=== PATIENT | male | born 1980 | race African-American/Black ===

== ENCOUNTER → 2024-05-03 | Outpatient (CLI) | payer OTHER, SELFPAY ==
[2024-05-03 14:49] LABS: Glucose Estimated Average 120 mg/dL (80-131); Hemoglobin A1C 5.8 % Hgb (4.8-6.0)
== END | disposition home or self-care (01) ==
PROVIDERS: PCP Student in an Organized Health Care Education/Training Program; Referring Provider Student in an Organized Health Care Education/Training Program; Visit Provider Student in an Organized Health Care Education/Training Program
DX: E11.65 Type 2 diabetes mellitus with hyperglycemia (principal); Z79.4 Long term (current) use of insulin
CPT/HCPCS: 36415; 83036

== ENCOUNTER → 2024-05-06 | Outpatient (CLI) | payer OTHER, SELFPAY ==
[2024-05-06 12:01] LABS: Basophils % (Auto) 1 % (0-2.5); Eosinophils # (Auto) 0.2 Thou/mm3 (0.0-0.5); Eosinophils % (Auto) 2 % (0-10); Hematocrit 28.3 % (41.0-53.0); Immature Granulocytes % (Auto) 0 % (0-0); Immature Granulocytes Auto 0.02 Thou/mm3 (0.00-0.00); Lymphocytes % (Auto) 27 % (10-50); Mean Corpuscular HGB Conc 31.8 g/dl (31.0-37.0); Mean Corpuscular Hemoglobin 27.2 pg (25.0-35.0); Mean Corpuscular Volume 86 fL (80-100); Monocytes # (Auto) 0.6 Thou/mm3 (0.0-0.8); Monocytes % (Auto) 8 % (0-12); Neutrophils # (Auto) 4.7 Thou/mm3 (1.8-7.7); Neutrophils % (Auto) 63 % (37-80); Nucleated Red Blood Cell % 0 /100 WBC (0); Platelet Count 279 Thou/mm3 (140-440); Red Blood Count 3.31 Miln/mm3 (4.50-5.90); White Blood Count 7.5 Thou/mm3 (3.8-10.6)
[2024-05-06 12:26] LABS: Alanine Aminotransferase 30 U/L (10-49); Albumin, Serum 4.2 gm/dL (3.5-5.0); Albumin/Globulin Ratio 1.4 (1.2-2.2); Alkaline Phosphatase 77 U/L (46-116); Anion Gap 7 (7-16); Aspartate Amino Transferase 26 U/L (0-34); BUN/Creatinine Ratio 21 Ratio (12-20); Bilirubin,Total 0.3 mg/dL (0.3-1.2); Blood Urea Nitrogen 36 mg/dL (9-23); Calcium 9.2 mg/dL (8.3-10.6); Calcium (Corrected) 9.2 mg/dL (8.5-10.1); Carbon Dioxide 24.2 mMol/L (20.0-31.0); Cardiac Risk Estimate 4.4 RATIO (4.0-6.7); Chloride 110 mMol/L (98-107); Cholesterol 177 mg/dL (132-200); Creatinine (Component) 1.7 mg/dL (0.6-1.3); Globulin 2.9 gm/dL (2.3-3.5); Glucose 107 mg/dL (74-106); HDL Cholesterol 40 mg/dL (40-60); LDL Cholesterol,Calculated 119 mg/dL (0-130); Osmolality,Calculated 289 (275-295); Potassium 4.3 mMol/L (3.4-5.1); Sodium 141 mMol/L (136-145); Total Protein 7.1 gm/dL (5.7-8.2); Triglycerides 92 mg/dL (30-150); eGFR 50 See Note
[2024-05-06 14:23] LABS: Creatinine MALB Rnd Ur 178 mg/dL (30-125); Microalbumin Creat Ratio 418 mg/gCrea (<30); Microalbumin, Random Urine 744 mg/L (0-300)
== END | disposition home or self-care (01) ==
LOC: COPL 11:35
PROVIDERS: PCP Student in an Organized Health Care Education/Training Program; Referring Provider Student in an Organized Health Care Education/Training Program; Visit Provider Student in an Organized Health Care Education/Training Program
DX: E11.22 Type 2 diabetes mellitus with diabetic chronic kidney disease (principal); N18.9 Chronic kidney disease, unspecified; D63.1 Anemia in chronic kidney disease; E11.65 Type 2 diabetes mellitus with hyperglycemia; Z79.4 Long term (current) use of insulin; N17.9 Acute kidney failure, unspecified; E78.2 Mixed hyperlipidemia; D64.9 Anemia, unspecified
CPT/HCPCS: 36415; 80053; 80061; 82043; 82570; 85025

== ENCOUNTER 2024-05-10 09:45 | Outpatient (AMB) | payer OTHER, SELFPAY ==
[2024-05-10 09:49] VITALS: BP 112/73; PULSE 114; RESP 18; TEMP 36.8; O2SAT 98; BMI 25.1
--- NOTE | 2024-05-10 09:49 | ACNOTE_ITS ---
Vital Signs 05/10/24 09:49 Height 1.78 m Height Method Stated Weight 79.492 kg Weight Measurement Method Standing Scale BMI 25.1 BP 112/73 Blood Pressure Source Automatic Cuff Blood Pressure Location Left Upper Arm Position Sitting Respiration 18 Pulse 114 H Pulse Source Monitor Temp 98.2 F Temp Source Oral Pulse Oximetry (%) 98 Oxygen Delivery Method Room Air Allergies/Meds Allergies & Medications Allergies No Known Allergies Allergy (Verified 05/19/24 20:02) Medication Reconciliation cholecalciferol (vitamin D3) 25 mcg (1,000 unit) tablet 2,000 unit PO QDAY 90 days #90 tabs 10/20/23 [Rx Confirmed 05/23/24] ferrous sulfate 325 mg (65 mg iron) tablet,delayed release 325 mg PO QOD #90 tabs 10/20/23 [Rx Confirmed 05/23/24] FreeStyle Ryan 3 Sensor (blood-glucose sensor) #2 ea 05/06/24 [Rx Confirmed 05/23/24] tirzepatide 2.5 mg/0.5 mL subcutaneous pen injector (Mounjaro) 2.5 mg (0.5 mL) subcut QWEEK diabetes mellitus #2 mL 05/06/24 [Rx Confirmed 05/23/24] MA Intake Visit Data Collection New Patient or Established: Established Patient (seen at [facility] within 3 years) Seen by Clinical Staff ONLY (RN/MA): No Pain Present Currently: No Pain scale:: 0 Pain Scale Used: Miranda-Newman/Numerical Relocation Coordinator Required: No PCP or OBGYN visit in last 3 months: Yes Do You Feel Safe at Home: Yes Smoking Status Smoking Status: Never smoker Immunization / Flu Flu Vaccine in the Last 12 Months: No Flu Vaccine Exclusion Criteria: Refused by Patient Past Medical History Past Medical History NEUROLOGIC: Positive Neurological Disorders and Peripheral Neuropathy; Negative Seizures CARDIAC: Positive Cardiac Disorders, Hypercholesterolemia and Hypertension; Negative Congestive Heart Failure RESPIRATORY: Negative Chronic Obstructive Pulmonary Disease (COPD) or Asthma GASTROINTESTINAL: Positive Gastrointestinal Disorders and Colitis GENITOURINARY: Negative Genitourinary Disorders or Renal Disease MUSCULOSKELETAL: Negative Musculoskeletal Disorders ENDOCRINE: Positive Endocrine Disorders and Diabetes Mellitus Type 2; Negative Diabetes Mellitus Type 1 HEMATOLOGIC: Negative Blood Disorders or Sickle Cell Disease PSYCHO/SOCIAL: Positive Depression and Anxiety OTHER HISTORY: Positive Chicken Pox; Negative Blood Transfusions, Anesthesia Reactions or Cancer Surgical History SURGICAL: Positive Oral Surgery (implants) Social History SMOKING STATUS: Smoking status: Never smoker ALCOHOL: Alcohol Intake: Current ALCOHOL FREQUENCY: Alcohol Intake Frequency: holidays/special occasions only HOUSING: Housing: House LIVES WITH: Lives With: Family Travel Risk Travel Hx Recent Travel: No Patient Portal Questionaires Social History Living Situation History Housing: House Housing Other:: Pt lives with his cousins Tobacco History Smoking Status: Never smoker Alcohol History Alcohol Intake: Current Alcohol Intake Frequency: holidays/special occasions only Domestic Abuse History Do You Feel Safe at Home: Yes Review of Systems Report any current symptoms Only answer those that you have currently: Past Medical History Past Medical History Have you ever been diagnosed with any of the following: Neurological Problems Seizures: No Peripheral Neuropathy: Yes Cardiology Problems Hypercholesterolemia: Yes Congestive Heart Failure: No Hypertension: Yes Respiratory Problems Chronic Obstructive Pulmonary Disease (COPD): No Asthma: No Stomache/Intestinal Problems Colitis: Yes Genital/Urinary Problems Renal Disease: No Endocrine Problems Diabetes Mellitus Type 1: No Diabetes Mellitus Type 2: Yes Blood Problems Sickle Cell Disease: No Psychologic Problems Depression: Yes Anxiety: Yes Other Problems Blood Transfusions: No Anesthesia Reactions: No Chicken Pox: Yes Cancer: No History of Present Illness HPI Narrative Patient presents to [facility] for follow-up of recent labs. On initial intake, patient noted to be tachycardic in the 110s with all other vitals within normal limits. Patient denies any symptoms of shortness of breath, palpitations, syncopal episodes. Patient was referred to cardiology services for evaluation of tachycardia and POTS, however has been unable to schedule an appointment. He states that he will schedule an appointment as soon as possible for further evaluation. Patient provided with a new referral. Will also initiate carvedilol 3.125 mg twice a day. On review of his labs, patient was noted to have a RAULITO with a BUN/CR of 36 and 1.7 respectively. Patient denied any recent use of NSAIDs or diuretics. He he did note that he has been having decreased oral intake of water as of recently which may be attributed to his RAULITO. Advised patient to increase his water intake. Will repeat BMP and urinalysis and follow-up in 2 weeks. Labs also indicated a elevated urine microalbumin (744), urine creatinine (178) and microalbumin to creatinine ratio (418). Due to ongoing RAULITO will not initiate GABBI/ARB at this time. Will consider at next visit. Lipid panel showed LDL of 119. Given the patient's concurrent diabetes mellitus, goal LDL less than 70. Patient has not been on statin in more than 2 months. Will reinitiate atorvastatin 40 mg p.o. nightly. Review of Systems Review of Systems Systems Reviewed: All systems reviewed, normal except as documented Objective/Exam General General Appearance: alert, in no apparent distress, comfortable, cooperative, healthy appearing, well developed and well groomed Head Head exam: atraumatic and normocephalic Eye Eye exam: Present normal appearance and EOMI Neck Neck exam: Present full ROM Chest Chest inspection: Present symmetric chest wall rise Resp Respiratory exam: Present normal lung sounds bilaterally Card Cardiovascular exam: Present regular rate, normal rhythm and tachycardia Abdominal Abdominal exam: Present soft Exp Skin Type of lesion: Present rash Distribution: other (Left lower extremity, popliteal fossa, appears dry and scaling) Assessment & Plan Diagnosis / Problem List (1) Acute kidney injury superimposed on CKD: Status: Acute Assessment & Plan: Patient noted to have elevated Cr on labs recently performed with a BUN/CR of 36 and 1.7 respectively. Denies any recent NSAID or diuretic usage. Patient notes he has had reduced PO fluid intake. Plan: Advised patient to increase water intake. Will repeat BMP and U/A and followup in 2 weeks time. (2) POTS (postural orthostatic tachycardia syndrome): Status: Acute Assessment & Plan: On initial intake, patient noted to be tachycardic in the 110s with all other vitals within normal limits. Plan: Cardiology referral provided. (3) Tachycardia with heart rate 100-120 beats per minute: Status: Chronic Assessment & Plan: Patient denied new episodes of palpitations or tachycardia, pending marble polisher hand appointment for follow-up and further recommendations. Plan: Discontinue metoprolol with the patient did not tolerate even the low-dose. Start Carvedilol 3.125 mg qday for three days. Then increase to BID. 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 CGM glucose trends between 180 and lowest around 67 when average glucose of 120. Plan: Continue Mounjaro 2.5 mg weekly. Patient was encouraged to continue healthy lifestyle modifications as well as exercise daily as tolerated. (5) Rash, skin: Status: Acute Assessment & Plan: Patient stated that around 1 month ago started presenting left lower extremity skin rash around the popliteal area mildly itchy. Patient notes improvement of rash and decreased pruritus after initiating Triamcinolone topical cream. Plan: Continue Triamcinolone 0.1% topical cream twice daily for 1 month Plan Patient's case was discussed with supervising attending physician Dr. Maikel Ramsey M.D. Internal Medicine PGY-3 Orders: Orders Basic Metabolic Panel 05/10/24 N17.9 - Acute kidney failure, unspecified, N18.9 - Chronic kidney disease, unspecified Urinalysis 05/10/24 N17.9 - Acute kidney failure, unspecified, N18.9 - Chronic kidney disease, unspecified Referrals Cardiology R00.0 - Tachycardia, unspecified, G90.A - Postural orthostatic tachycardia syndrome [POTS] Additional Assessment Attending note: I, Jeramy Ko MD, attest that I was physically present for the buchanan portions of the service and evaluated the patient with the resident and I reviewed and discussed the case with the resident and agree with the resident's findings and plans of care as documented above. Follow-up visit. Labs reviewed. Creatinine elevated again at 1.7. May be due to decreased intake of water. Does also have elevated urine microalbumin of 744, urine creatinine of 178, microalbumin to creatinine ratio 418. With ongoing RAULITO, we will hold off on GABBI/ARB at this time but consider at next visit. Repeat renal panel. We will reinstitute atorvastatin today for LDL of 119 which is above goal given that patient is diabetic. Note also made of patient remained tachycardic. Previously did not tolerate low-dose metoprolol. We will try low-dose carvedilol 3.125 mg twice daily. Patient has been referred to cardiology for follow-up of tachycardia. Jeramy Ko MD Physician Billing Established Patient Established Patient: E/M Level 3-CPT 15652 Office Procedures [facility] Level of Care Nursing/Assessment Patient Status: Established Patient Nursing Assessment/Reassessment: Medication Reconciliation, Update PMH in EMR and Vital Signs Coordination of Care: Complex Care and Chronic Disease 1-5, Consent,records obtained, informed consent, Education Simp Pt/Fam, Results/Orders obtained and Staff clarify orders Established Patient Charge Established Patient Point Assignment: 90 Established Patient Point Charge: EP Level 3 (80-115)
== END 2024-05-10 10:39 | disposition home or self-care (01) ==
LOC: HODAHC 09:45
PROVIDERS: PCP Student in an Organized Health Care Education/Training Program; Referring Provider Student in an Organized Health Care Education/Training Program; Supervising Provider Internal Medicine; Visit Provider Student in an Organized Health Care Education/Training Program
DX: N17.9 Acute kidney failure, unspecified (principal); E11.22 Type 2 diabetes mellitus with diabetic chronic kidney disease; N18.9 Chronic kidney disease, unspecified; G90.A Postural orthostatic tachycardia syndrome [POTS]; E11.65 Type 2 diabetes mellitus with hyperglycemia; Z79.85 Long-term (current) use of injectable non-insulin antidiabetic drugs; R21 Rash and other nonspecific skin eruption
CPT/HCPCS: 99213; G0463

== ENCOUNTER 2024-05-19 19:59 | Emergency (ER) | payer OTHER, SELFPAY ==
[2024-05-19 20:00] VITALS: BMI 24.7
[2024-05-19 20:24] VITALS: BP 110/67; PULSE 121; RESP 18; TEMP 37.7; O2SAT 98
--- NOTE | 2024-05-19 20:34 | XR_ITS ---
Examination: PA lateral chest 2 views Technique: Upright PA lateral chest 2 views Exam date and time: May 19, 20242042 hrs. Indications: Sepsis protocol Findings: Normal heart size No lobar pneumonia The osseous structures are intact Impression: No lobar pneumonia
--- NOTE | 2024-05-19 20:34 | EKG_ITS ---
[facility] Test Date: 2024-05-19 Pat Name: MARY CALDERON Department: Room: - Gender: Male Construction Mgr: : 1980 Requested By: Rodriguez Lay ([facility]) Order Number: [id number] Reading MD: Rodriguez Lay ([facility]) Measurements Intervals [place] Rate: 114 P: 47 VT: 157 QRS: 19 QRSD: 72 T: 54 QT: 284 QTc: 391 Interpretive Statements SINUS TACHYCARDIA ABNORMAL RHYTHM ECG Compared to ECG 10/19/2023 13:52:50 No significant changes /store/S0/[id number]/ecg/[id number].pdf
--- NOTE | 2024-05-19 20:35 | XR_ITS ---
Examination: CT right femur, without contrast. 2-D sagittal reconstructions. 2-D coronal reconstructions. 3-D reconstructions. Date and time of exam:May 19, 2024 1023 hrs. Indications: Right upper leg swelling and pain beginning one week ago CTDI: vol (mGy):12.79 DLP: (mGycm):832 Technique: Multiple 1.25 mm axial sections of the right femur have been obtained. 2-D sagittal and coronal reconstructions have been obtained. 3-D reconstructions have been obtained. Low dose protocols were performed. One or more of the following dose reduction techniques were used; automated exposure control, adjustment of the mA and/or KV according to patient size, use of iterative reconstruction technique. Findings: Edema in the subcutaneous fatty tissue right thigh especially lateral thigh and posterior thigh with skin thickening No soft tissue abscess on this noncontrast study No hip or femoral shaft fracture No cortical bone destruction Impression: Edema in the subcutaneous fatty tissue thigh, no soft tissue abscess noted on this noncontrast study
--- NOTE | 2024-05-19 20:36 | PD.EDRME ---
Rapid Medical Screening Exam RME Arrival date/time: 05/19/24 19:59 43-year-old male with past medical history of hyperlipidemia, diabetes, and anemia presents emergency department complaining of edema and redness to right thigh that is been ongoing for over a week. Chief Complaint: General Adult/Misc Complain Time Seen by Provider: 05/19/24 20:27 Vital signs: Vital Signs Temperature 99.9 F 05/19/24 20:24 Pulse Rate 121 H 05/19/24 20:24 Respiratory Rate 18 05/19/24 20:24 Blood Pressure 110/67 05/19/24 20:24 Pulse Oximetry (%) 98 05/19/24 20:24 Oxygen Delivery Method Room Air 05/19/24 20:24 Vital signs reviewed by provider: Yes
[2024-05-19 21:04] VITALS: TEMP 37.7
[2024-05-19] MEDS: ACETAMINOPHEN 500 MG TABLET 1000 MG PO (21:04)
[2024-05-19 21:08] LABS: Lactate (Lactic Acid) 0.7 mMol/L (0.4-2.0)
[2024-05-19 21:14] LABS: Basophils # (Auto) 0.1 Thou/mm3 (0.0-0.2); Basophils % (Auto) 0 % (0-2.5); Eosinophils # (Auto) 0.1 Thou/mm3 (0.0-0.5); Eosinophils % (Auto) 1 % (0-10); Hematocrit 23.3 % (41.0-53.0); Immature Granulocytes % (Auto) 0 % (0-0); Immature Granulocytes Auto 0.07 Thou/mm3 (0.00-0.00); Lymphocytes # (Auto) 2.1 Thou/mm3 (1.0-4.8); Lymphocytes % (Auto) 13 % (10-50); Mean Corpuscular HGB Conc 32.2 g/dl (31.0-37.0); Mean Corpuscular Hemoglobin 27.2 pg (25.0-35.0); Mean Corpuscular Volume 84 fL (80-100); Monocytes # (Auto) 1.4 Thou/mm3 (0.0-0.8); Monocytes % (Auto) 8 % (0-12); Neutrophils # (Auto) 12.9 Thou/mm3 (1.8-7.7); Neutrophils % (Auto) 78 % (37-80); Nucleated Red Blood Cell % 0 /100 WBC (0); Platelet Count 293 Thou/mm3 (140-440); RDW Standard Deviation 41.3 fL (35.1-43.9); Red Blood Count 2.76 Miln/mm3 (4.50-5.90); White Blood Count 16.6 Thou/mm3 (3.8-10.6)
[2024-05-19 21:18] LABS: Hemoglobin 7.5 g/dL (13.5-16.0)
[2024-05-19 21:21] LABS: INR 1.1 (0.9-1.3); Partial Thromboplastin Time 30.4 Seconds (22.0-36.0); Prothrombin Time 11.6 Seconds (9.0-12.2)
[2024-05-19 21:25] LABS: B-Type Natriuretic Peptide 141 pg/mL (0-100)
[2024-05-19 21:33] LABS: Alanine Aminotransferase 95 U/L (10-49); Albumin, Serum 3.8 gm/dL (3.5-5.0); Albumin/Globulin Ratio 1.2 (1.2-2.2); Alkaline Phosphatase 96 U/L (46-116); Anion Gap 6 (7-16); Aspartate Amino Transferase 47 U/L (0-34); BUN/Creatinine Ratio 17 Ratio (12-20); Bilirubin,Total 0.7 mg/dL (0.3-1.2); Blood Urea Nitrogen 33 mg/dL (9-23); Calcium 9.3 mg/dL (8.3-10.6); Calcium (Corrected) 9.5 mg/dL (8.5-10.1); Carbon Dioxide 25.2 mMol/L (20.0-31.0); Chloride 109 mMol/L (98-107); Estimated Creatinine Clearance 48.2 mL/min (>60); Globulin 3.3 gm/dL (2.3-3.5); Glucose 150 mg/dL (74-106); Lipase 39 U/L (12-53); Magnesium 1.9 mg/dL (1.6-2.6); Osmolality,Calculated 289 (275-295); Potassium 4.4 mMol/L (3.4-5.1); Procalcitonin 0.41 ng/ml (0.0-0.49); Sodium 140 mMol/L (136-145); Total Protein 7.1 gm/dL (5.7-8.2); Troponin I < 0.020 ng/mL (0.0-0.045); eGFR 41 See Note
--- NOTE | 2024-05-19 21:42 | EDNOTE_ITS ---
<Statement entered by Keyla Saavedra MD - 05/27/24 17:45> As co-signing physician, I was present and available for consult prn. I concur with the plan and care as documented by the midlevel provider. ED General RME/HPI General Chief complaint: General Adult/Misc Complain Stated complaint: RIGHT UPPER LEG SWELLING Time Seen by Provider: 05/19/24 20:27 Arrival date/time: 05/19/24 19:59 This is a 43-year-old male that comes in with complaints of right upper leg erythema and mild swelling. Patient states that it started approximately 1 week ago. Patient thinks that he got bit by a bug or had a blackhead. Patient states that it was hurting him a little bit but today it hurt him a little bit more and he felt it got a little bit more swollen. Patient has a history of chronic kidney disease, hyperlipidemia, diabetes, and anemia. Patient denies fever, chills, nausea, vomiting, diarrhea. RME / HPI RME / HPI narrative: 05/19/24 19:59 43-year-old male with past medical history of hyperlipidemia, diabetes, and anemia presents emergency department complaining of edema and redness to right thigh that is been ongoing for over a week. Related Data Previous Rx's ?Medication ?Instructions ?Recorded cholecalciferol (vitamin D3) 25 2,000 unit PO QDAY 90 days #90 tabs 10/20/23 mcg (1,000 unit) tablet ferrous sulfate 325 mg (65 mg 325 mg PO QOD #90 tabs 10/20/23 iron) tablet,delayed release FreeStyle Ryan 3 Sensor #2 ea 05/06/24 (blood-glucose sensor) tirzepatide 2.5 mg/0.5 mL 2.5 mg (0.5 mL) subcut QWEEK 05/06/24 subcutaneous pen injector diabetes mellitus #2 mL (Mounjaro) carvedilol 3.125 mg tablet 3.125 mg PO BID 1 month #60 tabs 05/10/24 amoxicillin 875 mg-potassium 1 tab PO BID 5 days #10 tabs 05/24/24 clavulanate 125 mg tablet Allergies Allergy/AdvReac Type Severity Reaction Status Date / Time No Known Allergies Allergy Verified 05/19/24 20:02 Review of Systems Review of Systems Systems Reviewed: All systems reviewed, normal except as documented Past Medical History Past Medical History NEUROLOGIC: Positive Neurological Disorders and Peripheral Neuropathy; Negative Seizures CARDIAC: Positive Cardiac Disorders, Hypercholesterolemia and Hypertension; Negative Congestive Heart Failure RESPIRATORY: Negative Chronic Obstructive Pulmonary Disease (COPD) or Asthma GASTROINTESTINAL: Positive Gastrointestinal Disorders (PERIANAL ABCESS, FECAL INCONTINENCE) and Colitis GENITOURINARY: Negative Genitourinary Disorders or Renal Disease MUSCULOSKELETAL: Negative Musculoskeletal Disorders ENDOCRINE: Positive Endocrine Disorders and Diabetes Mellitus Type 2; Negative Diabetes Mellitus Type 1 HEMATOLOGIC: Negative Blood Disorders or Sickle Cell Disease PSYCHO/SOCIAL: Positive Depression and Anxiety OTHER HISTORY: Positive Chicken Pox; Negative Blood Transfusions, Anesthesia Reactions or Cancer Surgical History SURGICAL: Positive Oral Surgery Social History SMOKING STATUS: Never smoker ED Exam General General appearance: Present alert and in no apparent distress Head Head exam: Present atraumatic Eye Eye exam: Present normal appearance, PERRL and EOMI ENT ENT exam: Present normal exam, normal oropharynx and mucous membranes moist Neck Neck exam: Present normal inspection, full ROM and trachea midline Chest Chest inspection: Present normal inspection and symmetric chest wall rise Respiratory Respiratory exam: Present normal lung sounds bilaterally Cardiovascular Cardiovascular exam: Present regular rate and normal rhythm Abdominal Exam Abdominal exam: Present soft and other (No pain to light palpation) Extremities Exam Extremities exam: Present full ROM and other (4x4cm area of induration on right lateral upper thigh. no fluctuance, no drainage ) Back Exam Back exam: Present normal inspection and full ROM Neurological Exam Neurological exam: Present alert, oriented X3 and CN II-XII intact Psychiatric Psychiatric exam: Present normal affect and normal mood Skin Skin exam: Present warm, dry, intact and normal color Course Quality Measures none Orders Category Date Time Status EKG (ED ONLY) *Do not use* NOW Care 05/19/24 20:[address] femur RT wo con Stat Exams 05/19/24 20:35 Completed EKG (ED Only) Stat Exams 05/19/24 20:34 Draft XR chest 2V Stat Exams 05/19/24 20:34 Completed B-Type Natriuretic Peptide Stat Lab 05/19/24 20:56 Completed Blood Culture (Lab) Stat Lab 05/19/24 20:58 Completed CBC Stat Lab 05/19/24 20:56 Completed Comprehensive Metabolic Panel Stat Lab 05/19/24 20:56 Completed Lactate (Lactic Acid) Stat Lab 05/19/24 20:56 Completed Lipase Stat Lab 05/19/24 20:56 Completed Magnesium Stat Lab 05/19/24 20:56 Completed Partial Thromboplastin Time Stat Lab 05/19/24 20:56 Completed Procalcitonin Stat Lab 05/19/24 20:56 Completed Prothrombin Time with INR Stat Lab 05/19/24 20:56 Completed Troponin I Stat Lab 05/19/24 20:56 Completed Acetaminophen Tab [Tylenol ES Tab] Med 05/19/24 20:38 Discontinued 1,000 mg PO X1 ONE Doxycycline [Vibramycin] Med 05/19/24 22:03 Discontinued 100 mg PO X1 ONE Sodium Chloride 0.9% 1000 ml [Ns] 1,000 ml Med 05/19/24 22:03 Discontinued IV 999 mls/hr cefTRIAXone [Rocephin] 1,000 mg Med 05/19/24 22:03 Discontinued Sodium Chloride 0.9% (P) [Ns 0.9% (P)] 50 ml IV X1 Vital Signs Vital signs: Vital Signs Temperature 99.9 F 05/19/24 20:24 Pulse Rate 121 H 05/19/24 20:24 Respiratory Rate 18 05/19/24 20:24 Blood Pressure 110/67 05/19/24 20:24 Pulse Oximetry (%) 98 05/19/24 20:24 Oxygen Delivery Method Room Air 05/19/24 20:24 Procedures -ED EKG Interpretation #1: Date of EK05/19/24 Time of EK:37 Rate: 114 Interpretation: Interpreted by me (Sinus tachycardia ) EKG Impression: No ectopy, Normal QRS and Normal intervals MDM Patient data External records reviewed:: [facility] [place] previous records Clinical information provided by:: patient Social determinants that could affect healthcare access:: none Patient has the following chronic illnesses:: see hpi How is presenting disease/condition affected by chronic disease/condition?: e xacerbated by Evaluation data The following diagnostics were reviewed and interpreted by me:: lab results, radiology exam(s) and EKG tracing(s) Lab and/or radiology exams considered but not ordered:: none Interpretation Summary: see note Medications Medications considered but not ordered:: none Medication administrations:: Medication Administration History Discontinued Medications Acetaminophen (Acetaminophen 500 Mg Tablet) 1,000 mg PO X1 ONE Stop: 05/19/24 20:39 Last Admin: 05/19/24 21:04 Dose: 1,000 mg Documented By: Doxycycline Hyclate (Doxycycline 100 Mg Tablet) 100 mg PO X1 ONE Stop: 05/19/24 22:04 Last Admin: 05/19/24 23:06 Dose: 100 mg Documented By: LAKISHA Sodium Chloride (Ns) 1,000 mls @ 999 mls/hr IV .Q1H1M ONE Stop: 05/19/24 23:03 Last Infusion: 05/19/24 23:09 Dose: Infused Documented By: Admin: 05/19/24 22:04 Dose: 999 mls/hr Documented By: LAKISHA Ceftriaxone Sodium 1,000 mg/ (Sodium Chloride) 50 mls @ 100 mls/hr IV X1 ONE Stop: 05/19/24 22:32 Last Infusion: 05/19/24 22:40 Dose: Infused Documented By: Admin: 05/19/24 22:06 Dose: 100 mls/hr Documented By: LAKISHA see mar Consultations Consultation(s) initiated? (list below): No Diagnosis Differential Diagnosis ED Complaint MDM: cellulitis, abscess, fracture Most likely diagnosis given after review of the tests above:: cellulitis Admission Indicated Admission indicated?: not indicated Explain why admission is indicated or not indicated:: not needed, pt improved Admission Request Was there a request for admission?: No Disposition Plan Disposition Plan: Discharge Discharge Attestation Discharge Attestation: The patient and all family members were given an opportunity to ask questions and understood the discharge instructions. Discharge instructions specifically effects, indications for sooner follow up or return to the emergency department, and the expected course of current diagnosis. Patient condition: Stable Medical Decision Making MDM Narrative MDM Narrative: Reviewed patient's labs show white count of 16.6, hemoglobin and hematocrit of 7.5 23.3 patient is chronically low, and takes iron. Patient asked if he is having blood in his stool or dark stools. Patient denies. Patient refused rectal exam and stated he would follow-up with his primary provider. Patient has chronic kidney disease on metabolic panel. LFTs slightly elevated. Procalcitonin and lactic acid within normal limits. Patient treated with a dose of Rocephin IV 1 L IV fluids a dose of doxycycline. Patient given Tylenol for pain. Pt told to come back to ED if symptoms change or worsen. Chest x rays shows: Findings: Normal heart size No lobar pneumonia The osseous structures are intact Impression: No lobar pneumonia femur ct: Findings: Edema in the subcutaneous fatty tissue right thigh especially lateral thigh and posterior thigh with skin thickening No soft tissue abscess on this noncontrast study No hip or femoral shaft fracture No cortical bone destruction Impression: Edema in the subcutaneous fatty tissue thigh, no soft tissue abscess noted on this noncontrast study Differential Diagnosis Differential Diagnosis: cellulitis, abscess, fracture Lab Data 05/19/24 20:56 05/19/24 20:56 Labs: Lab Results 05/19/24 Range/Units 20:56 WBC 16.6 H (3.8-10.6) Thou/mm3 RBC 2.76 L (4.50-5.90) Miln/mm3 Hgb 7.5 L (13.5-16.0) g/dL Hct 23.3 L (41.0-53.0) % MCV 84 (80-100) fL MCH 27.2 (25.0-35.0) pg MCHC 32.2 (31.0-37.0) g/dl RDW Std Deviation 41.3 (35.1-43.9) fL Plt Count 293 (140-440) Thou/mm3 Neut % (Auto) 78 (37-80) % Lymph % (Auto) 13 (10-50) % Stafford % (Auto) 8 (0-12) % Eos % (Auto) 1 (0-10) % Baso % (Auto) 0 (0-2.5) % Neut # (Auto) 12.9 H (1.8-7.7) Thou/mm3 Lymph # (Auto) 2.1 (1.0-4.8) Thou/mm3 Stafford # (Auto) 1.4 H (0.0-0.8) Thou/mm3 Eos # (Auto) 0.1 (0.0-0.5) Thou/mm3 Baso # (Auto) 0.1 (0.0-0.2) Thou/mm3 Immature Gran # (Auto) 0.07 H (0.00-0.00) Thou/mm3 Absolute Nucleated RBC 0.00 (0.00-0.00) Thou/mm3 Immature Gran % 0 (0-0) % Nucleated RBC % 0 (0) /100 WBC PT 11.6 (9.0-12.2) Seconds INR 1.1 (0.9-1.3) APTT 30.4 (22.0-36.0) Seconds Sodium 140 (136-145) mMol/L Potassium 4.4 (3.4-5.1) mMol/L Chloride 109 H (98-107) mMol/L Carbon Dioxide 25.2 (20.0-31.0) mMol/L Anion Gap 6 L (7-16) BUN 33 H (9-23) mg/dL Creatinine 2.0 H (0.6-1.3) mg/dL Estim Creat Clear Calc 48.2 L (>60) mL/min eGFR 41 L (60 - ) See Note BUN/Creatinine Ratio 17 (12-20) Ratio Glucose 150 H (74-106) mg/dL Calculated Osmolality 289 (275-295) Lactic Acid 0.7 (0.4-2.0) mMol/L Calcium 9.3 (8.3-10.6) mg/dL Corrected Calcium 9.5 (8.5-10.1) mg/dL Magnesium 1.9 (1.6-2.6) mg/dL Total Bilirubin 0.7 (0.3-1.2) mg/dL AST 47 H (0-34) U/L ALT 95 H (10-49) U/L Alkaline Phosphatase 96 (46-116) U/L Troponin I < 0.020 (0.0-0.045) ng/mL B-Natriuretic Peptide 141 H (0-100) pg/mL Total Protein 7.1 (5.7-8.2) gm/dL Albumin 3.8 (3.5-5.0) gm/dL Globulin 3.3 (2.3-3.5) gm/dL Albumin/Globulin Ratio 1.2 (1.2-2.2) Lipase 39 (12-53) U/L Procalcitonin 0.41 (0.0-0.49) ng/ml Discharge Plan Plan Patient Disposition: HOME (Self Care) Patient condition on transfer: Stable Prescriptions/Referrals Prescriptions/Med Rec: No Action (DME) FreeStyle Ryan 3 Sensor Device See Rx Instructions .Route Qty: 2 5RF Rx Instructions: Use as directed Mounjaro 2.5 mg/0.5 mL pen injector 2.5 mg SUBCUT QWEEK MDD 0.5 mg Qty: 2 5RF carvedilol 3.125 mg tablet 3.125 mg PO BID 30 Days Qty: 60 0RF Rx Instructions: must administer with a meal/food ferrous sulfate 325 mg (65 mg iron) Tablet,Delayed Release (Dr/Ec) 325 mg PO QOD Qty: 90 1RF cholecalciferol (vitamin D3) 25 mcg (1,000 unit) Tablet 2,000 unit PO QDAY 90 Days Qty: 90 1RF amoxicillin-pot clavulanate 875-125 mg tablet 1 tab PO BID 5 Days Qty: 10 0RF Problem List Clinical Impression: Anemia, Diabetes mellitus, Cellulitis, Elevated liver enzymes Patient/Caregiver Discharge Instructions Discharge Activity: activity as tolerated Education Materials: ED Cellulitis, Type 2 Diabetes Additional Instructions: Can ue warm compresses every four hours to right upper thigh. Take antibiotics as prescribed. Follow up with primary provider in 1-2 days. PLease have blood counts done again. Your hgb is 7.5 today Print Language: German Stand Alone Forms: Rosemarie Award Info., Patient Portal Info Letter PA/[employer] Supervising Physician PA/[employer] Supervising Physician: jace
[2024-05-19] MEDS: SODIUM CHLORIDE 0.9% 1000 ML 1,000 ML 999 ML IV (22:04)
[2024-05-19] MEDS: cefTRIAXone 1,000 MG in SODIUM CHLORIDE 0.9% (P) 50 ML 100 MG IV (22:06)
[2024-05-19 22:33] VITALS: BP 157/94; PULSE 106; RESP 17; TEMP 36.9; O2SAT 96
[2024-05-19] MEDS: DOXYCYCLINE 100 MG TABLET PO (23:06)
== END 2024-05-19 23:30 | disposition home or self-care (01) ==
PROVIDERS: Emergency Provider Emergency Medicine; PCP Student in an Organized Health Care Education/Training Program
DX: L03.115 Cellulitis of right lower limb (principal); I12.9 Hypertensive chronic kidney disease with stage 1 through stage 4 chronic kidney disease, or unspecified chronic kidney disease; N18.9 Chronic kidney disease, unspecified; D63.1 Anemia in chronic kidney disease; R74.8 Abnormal levels of other serum enzymes; R00.0 Tachycardia, unspecified
CPT/HCPCS: 36415; 71046; 73700; 80053; 81001; 83605; 83690; 83735; 83880; 84145; 84484; 85025; 85610; 85730; 87040; 87086; 93005; 96365; 99284; J0696; J7030; J7050; A9270

== ENCOUNTER 2024-05-22 19:44 | Inpatient (IN) | payer OTHER, SELFPAY ==
[2024-05-22 19:45] VITALS: BMI 24.7
[2024-05-22 20:12] VITALS: BP 143/82; PULSE 110; RESP 18; TEMP 37.2; O2SAT 98
--- NOTE | 2024-05-22 20:23 | PD.EDRME ---
Rapid Medical Screening Exam RME Arrival date/time: 05/22/24 19:44 43M with history of DM presents to ED with worsening RLE pain/swelling. Patient was here several days ago for this and was diagnosed with cellulitis. Patient has been taking his ABX as prescribed (doxy and Keflex). Chief Complaint: Wound Recheck / Suture Removal Vital signs: Vital Signs Temperature 99 F 05/22/24 20:12 Pulse Rate 110 H 05/22/24 20:12 Respiratory Rate 18 05/22/24 20:12 Blood Pressure 143/82 H 05/22/24 20:12 Pulse Oximetry (%) 98 05/22/24 20:12 Oxygen Delivery Method Room Air 05/22/24 20:12
[2024-05-22 20:44] LABS: Lactate (Lactic Acid) 0.6 mMol/L (0.4-2.0)
[2024-05-22 20:47] LABS: Basophils # (Auto) 0.1 Thou/mm3 (0.0-0.2); Basophils % (Auto) 0 % (0-2.5); Eosinophils # (Auto) 0.3 Thou/mm3 (0.0-0.5); Eosinophils % (Auto) 2 % (0-10); Hematocrit 23.2 % (41.0-53.0); Immature Granulocytes % (Auto) 1 % (0-0); Lymphocytes # (Auto) 1.9 Thou/mm3 (1.0-4.8); Lymphocytes % (Auto) 11 % (10-50); Mean Corpuscular HGB Conc 32.8 g/dl (31.0-37.0); Mean Corpuscular Hemoglobin 27.6 pg (25.0-35.0); Mean Corpuscular Volume 84 fL (80-100); Monocytes # (Auto) 1.1 Thou/mm3 (0.0-0.8); Monocytes % (Auto) 7 % (0-12); Neutrophils # (Auto) 13.2 Thou/mm3 (1.8-7.7); Neutrophils % (Auto) 79 % (37-80); Nucleated Red Blood Cell % 0 /100 WBC (0); Platelet Count 378 Thou/mm3 (140-440); RDW Standard Deviation 41.5 fL (35.1-43.9); Red Blood Count 2.75 Miln/mm3 (4.50-5.90); White Blood Count 16.6 Thou/mm3 (3.8-10.6)
[2024-05-22 20:52] LABS: Hemoglobin 7.6 g/dL (13.5-16.0)
[2024-05-22 21:08] LABS: Alanine Aminotransferase 68 U/L (10-49); Albumin, Serum 4.3 gm/dL (3.5-5.0); Albumin/Globulin Ratio 1.3 (1.2-2.2); Alkaline Phosphatase 130 U/L (46-116); Anion Gap 8 (7-16); Aspartate Amino Transferase 24 U/L (0-34); BUN/Creatinine Ratio 15 Ratio (12-20); Bilirubin,Total 0.3 mg/dL (0.3-1.2); Blood Urea Nitrogen 37 mg/dL (9-23); Calcium 8.8 mg/dL (8.3-10.6); Calcium (Corrected) 8.8 mg/dL (8.5-10.1); Carbon Dioxide 25.3 mMol/L (20.0-31.0); Chloride 105 mMol/L (98-107); Creatinine (Component) 2.5 mg/dL (0.6-1.3); Estimated Creatinine Clearance 38.5 mL/min (>60); Globulin 3.4 gm/dL (2.3-3.5); Glucose 112 mg/dL (74-106); Osmolality,Calculated 285 (275-295); Potassium 4.3 mMol/L (3.4-5.1); Sodium 138 mMol/L (136-145); Total Protein 7.7 gm/dL (5.7-8.2); eGFR 31 See Note
[2024-05-22 21:30] LABS: Procalcitonin 0.31 ng/ml (0.0-0.49)
[2024-05-22 22:14] VITALS: BP 186/102; PULSE 107; RESP 19; TEMP 37.1; O2SAT 98
--- NOTE | 2024-05-22 22:33 | EDNOTE_ITS ---
ED General RME/HPI General Chief complaint: Wound Recheck / Suture Removal Stated complaint: RE CHECK RIGHT LEG SWELLING Arrival date/time: 05/22/24 19:44 Limitations: no limitations RME / HPI RME / HPI narrative: 05/22/24 19:44 43M with history of DM presents to ED with worsening RLE pain/swelling. Patient was here several days ago for this and was diagnosed with cellulitis. Patient has been taking his ABX as prescribed (doxy and Keflex). ------ Dr. Biswas's Main ED Evaluation: 43yo male with pmhx DM, HTN, POTS, anemia presents to the ED for a chief complaint of worsening RLE pain and swelling. Patient states he came here to the ED for similar symptoms, but endorses his RLE pain and swelling have been progressively getting worse. He states he feels like it needs to be opened up due to getting bigger. He denies any headache, vision changes, postural hypotension or any other associated symptoms. No known allergies. Related Data Previous Rx's ?Medication ?Instructions ?Recorded cholecalciferol (vitamin D3) 25 2,000 unit PO QDAY 90 days #90 tabs 10/20/23 mcg (1,000 unit) tablet ferrous sulfate 325 mg (65 mg 325 mg PO QOD #90 tabs 10/20/23 iron) tablet,delayed release FreeStyle Ryan 3 Sensor #2 ea 05/06/24 (blood-glucose sensor) atorvastatin 40 mg tablet 40 mg PO QDAY HLD 3 months #90 tabs 05/06/24 pen needle, diabetic 29 gauge x #100 ea 05/06/2406/20 (Comfort EZ Pen [place]) tirzepatide 2.5 mg/0.5 mL 2.5 mg (0.5 mL) subcut QWEEK 05/06/24 subcutaneous pen injector diabetes mellitus #2 mL (Mounjaro) triamcinolone acetonide 0.1 % 1 applic topical BID 1 month #30 05/06/24 topical cream grams carvedilol 3.125 mg tablet 3.125 mg PO BID 1 month #60 tabs 05/10/24 cephalexin 500 mg capsule 500 mg PO QID 7 days #28 caps 05/19/24 doxycycline hyclate 100 mg tablet 100 mg PO BID #14 tabs 05/19/24 Allergies Allergy/AdvReac Type Severity Reaction Status Date / Time No Known Allergies Allergy Verified 05/19/24 20:02 Review of Systems Review of Systems Systems Reviewed: All systems reviewed, normal except as documented Past Medical History Past Medical History NEUROLOGIC: Positive Neurological Disorders and Peripheral Neuropathy; Negative Seizures CARDIAC: Positive Cardiac Disorders, Hypercholesterolemia and Hypertension; Negative Congestive Heart Failure RESPIRATORY: Negative Chronic Obstructive Pulmonary Disease (COPD) or Asthma GASTROINTESTINAL: Positive Gastrointestinal Disorders and Colitis GENITOURINARY: Negative Genitourinary Disorders or Renal Disease MUSCULOSKELETAL: Negative Musculoskeletal Disorders ENDOCRINE: Positive Endocrine Disorders and Diabetes Mellitus Type 2; Negative Diabetes Mellitus Type 1 HEMATOLOGIC: Negative Blood Disorders or Sickle Cell Disease PSYCHO/SOCIAL: Positive Depression and Anxiety OTHER HISTORY: Positive Chicken Pox; Negative Blood Transfusions, Anesthesia Reactions or Cancer Surgical History SURGICAL: Positive Oral Surgery Social History SMOKING STATUS: Never smoker ED Exam General Limitations: Present no limitations General appearance: Present alert and in no apparent distress Head Head exam: Present atraumatic Eye Eye exam: Present normal appearance, PERRL and EOMI ENT ENT exam: Present normal exam, normal oropharynx and mucous membranes moist Neck Neck exam: Present normal inspection, full ROM and trachea midline Chest Chest inspection: Present normal inspection and symmetric chest wall rise Respiratory Respiratory exam: Present normal lung sounds bilaterally Cardiovascular Cardiovascular exam: Present normal rhythm, tachycardia and normal heart sounds Abdominal Exam Abdominal exam: Present soft and normal bowel sounds Extremities Exam Extremities exam: Present full ROM; Absent pedal edema Back Exam Back exam: Present normal inspection and full ROM Neurological Exam Neurological exam: Present alert, oriented X3 and CN II-XII intact Psychiatric Psychiatric exam: Present normal affect and normal mood Skin Skin exam: Present warm, dry, intact, pallor (slight) and other (6x4 cm area of irregular erythema to the lateral right thigh with minimal tenderness to palpation, no fluctuance or discharge); Absent diaphoresis Course Course Course Narrative: 2215: Sepsis alert initiated. Orders made at this time are congruent with ED Adult Sepsis Order List. Re-evaluation is to be completed. 2242: NS IVF started. 0046: Sepsis reassessment performed consisting of lab review, vitals, physical exam including auscultation of heart, lungs, and visual evaluation of capillary refills, mucosal membranes and extremities. Quality Measures Possible source: skin/soft tissue Blood cultures ordered: completed in ED Antibiotic ordered: Yes Pertinent labs: 05/22/24 20:32 Lactic Acid 0.6 mMol/L (0.4-2.0) Procalcitonin 0.31 ng/ml (0.0-0.49) sepsis Orders Category Date Time Status COVID-19 Screening Questionnaire NOW Care 05/23/24 00:18 Active Software Support Analyst STAT Care 05/22/24 22:35 Active Continuous Pulse Oximetry STAT Care 05/22/24 22:35 Completed Decision to Admit X1 Care 05/23/24 00:18 Completed EKG (ED ONLY) *Do not use* NOW Care 05/22/24 22:35 Completed In and Out Catheter X1PRN Care 05/22/24 22:35 Completed Insert IV NOW Care 05/22/24 22:35 Completed Strict Intake and Output Routine Care 05/22/24 22:35 Ordered EKG (ED Only) Stat Exams 05/22/24 22:35 Draft B-Type Natriuretic Peptide Stat Lab 05/22/24 20:32 Completed Blood Culture (Lab) Stat Lab 05/22/24 20:32 Received CBC Stat Lab 05/22/24 20:32 Completed CMP [Comprehensive Metabolic Panel] Stat Lab 05/22/24 20:32 Completed Hemoglobin A1C [Glycohemoglobin w (eAG)] Stat Lab 05/23/24 00:02 Completed LDH (Lactate Dehydrogenase) Stat Lab 05/22/24 20:32 Completed Lactate (Lactic Acid) Stat Lab 05/22/24 20:32 Completed Lipase Stat Lab 05/22/24 20:32 Completed Magnesium Stat Lab 05/22/24 20:32 Completed Partial Thromboplastin Time Stat Lab 05/22/24 20:32 Completed Phosphorous Stat Lab 05/22/24 20:32 Completed Procalcitonin Stat Lab 05/22/24 20:32 Completed Prothrombin Time with INR Stat Lab 05/22/24 20:32 Completed Troponin I Stat Lab 05/22/24 20:32 Completed Urinalysis Stat Lab 05/23/24 00:13 Completed Urine Culture Stat Lab 05/22/24 00:13 Received Piper/Tazo 3.375 gm [Zosyn] Med 05/22/24 22:35 Discontinued 3.375 gm in 50 ml IV X1 Sodium Chloride 0.9% 1000 ml [Ns] 2,190 ml Med 05/22/24 22:35 Discontinued IV 2,190 mls/hr hydrALAZINE INJ [Apresoline Inj] Med 05/23/24 00:19 Discontinued 20 mg IV X1 ONE Oxygen Delivery NOW RT 05/22/24 22:35 Active Vital Signs Vital signs: Vital Signs Temperature 99 F 05/22/24 20:12 Pulse Rate 110 H 05/22/24 20:12 Respiratory Rate 18 05/22/24 20:12 Blood Pressure 143/82 H 05/22/24 20:12 Pulse Oximetry (%) 98 05/22/24 20:12 Oxygen Delivery Method Room Air 05/22/24 20:12 Pulse ox is 98% on room air, which is normal according to my interpretation. [facility] Patient data External records reviewed:: [facility] previous records (Per chart review, patient was seen here on 05/19/24 for anemia.) Clinical information provided by:: patient Social determinants that could affect healthcare access:: none Patient has the following chronic illnesses:: HTN, HLD, DM How is presenting disease/condition affected by chronic disease/condition?: u neffected by Evaluation data The following diagnostics were reviewed and interpreted by me:: lab results and EKG tracing(s) Lab and/or radiology exams considered but not ordered:: none Interpretation Summary: WBC count is elevated at 16.6, Creatinine is elevated at 2.5, Glucose is 112, Lactic Acid is normal, Procalcitonin is normal, according to my interpretation. EKG done at 2245, sinus rhythm, rate of 106, flattening ST-T waves in lead III and aVF, normal intervals, QTc: 376, impression: sinus tachycardia, according to my interpretation. Bedside 2V limited US of the right thigh done by me due to the patient having a possible abscess, which showed minimal cobblestone, no obvious fluid collection, no foreign body, impression: right thigh cellulitis. Medications Medications considered but not ordered:: none Medication administrations:: Medication Administration History Acetaminophen (Acetaminophen 325 Mg Tablet) 650 mg PO Q6H PRN PRN Reason: PAIN SCALE 1-3 (mild Stop: 06/22/24 02:21 Carvedilol (Carvedilol 3.125 Mg Tablet) 3.125 mg PO BID BELINDA Stop: 06/22/24 08:59 Dextrose (Dextrose 50%-Water Inj 50 Ml Syringe) 25 ml IV Q15MIN PRN PRN Reason: BG 50-70 responsive npo pt Stop: 06/22/24 03:02 Dextrose (Dextrose 50%-Water Inj 50 Ml Syringe) 50 ml IV Q15MIN PRN PRN Reason: BG <50 OR BG <70 & pt unresponsive Stop: 06/22/24 03:02 Glucagon (Glucagon Inj 1 Mg Vial) 1 mg IM Q15MIN PRN PRN Reason: BG <70, and no IV access Heparin Sodium (Porcine) (Heparin Sod Inj 5000 Unit/Ml Vial) 5,000 unit SC Q12HR BELINDA Stop: 06/06/24 08:59 Ampicillin Sodium/Sulbactam (Sodium 3 gm/ Sodium Chloride) 100 mls @ 200 mls/hr IV Q6HR BELINDA Stop: 05/30/24 02:29 Vancomycin/Sodium Chloride (Vancomycin/Ns 1 Gm Ivpb) 200 mls @ 100 mls/hr IV X1 BELINDA Stop: 05/30/24 03:59 Ampicillin Sodium/Sulbactam (Sodium 3 gm/ Sodium Chloride) 100 mls @ 200 mls/hr IV X1 ONE Stop: 05/23/24 09:29 Insulin Human Lispro (Insulin Lispro (Admelog) 1 Unit/0.01 Ml Unit) 0 unit SC ACHS [facility]; Protocol Stop: 06/22/24 07:29 Ondansetron HCl (Ondansetron Inj 2 Mg/Ml Inj 2 Ml) 4 mg IV Q6H PRN; Protocol PRN Reason: NAUSEA OR VOMITING Stop: 06/22/24 02:21 Pharmacy Consult (Vancomycin Pharmacy To Dose 1 Each Each) 1 each IV QDAY [facility] Stop: 06/22/24 08:59 Sennosides (Senna Tablet) 1 tab PO QDAY PRN; Protocol PRN Reason: constipation Stop: 06/22/24 02:21 Discontinued Medications Hydralazine HCl (Hydralazine Inj 20 Mg/Ml Vial) 20 mg IV X1 ONE Stop: 05/23/24 00:20 Last Admin: 05/23/24 00:26 Dose: 20 mg Documented By: DOUG Sodium Chloride (Ns) 2,190 mls @ 2,190 mls/hr 30 ml/kg infuse over 60 min (2190 ml) IV .Q1H ONE Stop: 05/22/24 23:34 Last Infusion: 05/23/24 00:16 Dose: Infused Documented By: Admin: 05/22/24 22:42 Dose: 2,190 mls/hr Documented By: DOUG Piperacillin/Tazobactam/Dextrose (Zosyn) 3.375 gm in 50 mls @ 100 mls/hr IV X1 ONE Stop: 05/22/24 23:04 Last Infusion: 05/23/24 00:16 Dose: Infused Documented By: Admin: 05/22/24 22:42 Dose: 100 mls/hr Documented By: DOUG Ampicillin Sodium/Sulbactam (Sodium 3 gm/ Sodium Chloride) 100 mls @ 200 mls/hr IV X1 ONE Stop: 05/23/24 03:14 Last Admin: 05/23/24 03:53 Dose: Not Given Documented By: Non-Admin Reason: Cancelled by Provider see below, if any Consultations Consultation(s) initiated? (list below): Yes Consultation #1 (Physician, Specialty, Details): Discussed case with [Dr. Estrada] from Hospitalist service regarding admission. Discussed patients ED course, exam findings, labs, and radiology results. The Hospitalist [agrees] to accept the patient for admission. Diagnosis Differential Diagnosis ED Complaint MDM: cellulitis, DVT, abscess, hypertensive urgency vs, emergency, sepsis Most likely diagnosis given after review of the tests above:: Final DDx: complications of POTS, worsening kidney failure secondary to DM or HTN Dx: see below Admission Indicated Admission indicated?: indicated Explain why admission is indicated or not indicated:: Due to the patient's labs becoming worse, patient is warranted for admission. Admission Request Was there a request for admission?: Yes Admission Attestation Admission request attestation: Discussed case with [] from Hospitalist service regarding admission. Discussed patients ED course, exam findings, labs, and radiology results. The Hospitalist [agrees,declines] to accept the patient for admission. Disposition Plan Disposition Plan: Admit Medical Decision Making Differential Diagnosis Differential Diagnosis: cellulitis, DVT, abscess, hypertensive urgency vs, emergency, sepsis Lab Data 05/23/24 05:08 05/22/24 20:32 Labs: Lab Results 05/22/24 05/23/24 Range/Units 20:32 00:13 WBC 16.6 H (3.8-10.6) Thou/mm3 RBC 2.75 L (4.50-5.90) Miln/mm3 Hgb 7.6 L (13.5-16.0) g/dL Hct 23.2 L (41.0-53.0) % MCV 84 (80-100) fL MCH 27.6 (25.0-35.0) pg MCHC 32.8 (31.0-37.0) g/dl RDW Std Deviation 41.5 (35.1-43.9) fL Plt Count 378 D (140-440) Thou/mm3 Neut % (Auto) 79 (37-80) % Lymph % (Auto) 11 (10-50) % Nolan % (Auto) 7 (0-12) % Eos % (Auto) 2 (0-10) % Baso % (Auto) 0 (0-2.5) % Neut # (Auto) 13.2 H (1.8-7.7) Thou/mm3 Lymph # (Auto) 1.9 (1.0-4.8) Thou/mm3 Nolan # (Auto) 1.1 H (0.0-0.8) Thou/mm3 Eos # (Auto) 0.3 (0.0-0.5) Thou/mm3 Baso # (Auto) 0.1 (0.0-0.2) Thou/mm3 Immature Gran # (Auto) 0.10 H (0.00-0.00) Thou/mm3 Absolute Nucleated RBC 0.00 (0.00-0.00) Thou/mm3 Immature Gran % 1 H (0-0) % Nucleated RBC % 0 (0) /100 WBC PT 11.2 (9.0-12.2) Seconds INR 1.0 (0.9-1.3) APTT 32.3 (22.0-36.0) Seconds Sodium 138 (136-145) mMol/L Potassium 4.3 (3.4-5.1) mMol/L Chloride 105 (98-107) mMol/L Carbon Dioxide 25.3 (20.0-31.0) mMol/L Anion Gap 8 (7-16) BUN 37 H (9-23) mg/dL Creatinine 2.5 H D (0.6-1.3) mg/dL Estim Creat Clear Calc 38.5 L (>60) mL/min eGFR 31 L (60 - ) See Note BUN/Creatinine Ratio 15 (12-20) Ratio Glucose 112 H (74-106) mg/dL Estimated Ave Glu mg/dL 114 (80-131) mg/dL Hemoglobin A1c 5.6 (4.8-6.0) % Hgb Calculated Osmolality 285 (275-295) Lactic Acid 0.6 (0.4-2.0) mMol/L Calcium 8.8 (8.3-10.6) mg/dL Corrected Calcium 8.8 (8.5-10.1) mg/dL Phosphorus 3.2 (2.4-5.1) mg/dL Magnesium 2.0 (1.6-2.6) mg/dL Total Bilirubin 0.3 (0.3-1.2) mg/dL AST 24 (0-34) U/L ALT 68 H (10-49) U/L Alkaline Phosphatase 130 H D (46-116) U/L Lactate Dehydrogenase 304 H (120-246) U/L Troponin I < 0.020 (0.0-0.045) ng/mL B-Natriuretic Peptide 147 H (0-100) pg/mL Total Protein 7.7 (5.7-8.2) gm/dL Albumin 4.3 D (3.5-5.0) gm/dL Globulin 3.4 (2.3-3.5) gm/dL Albumin/Globulin Ratio 1.3 (1.2-2.2) Lipase 50 D (12-53) U/L Procalcitonin 0.31 (0.0-0.49) ng/ml Ur Collection Type Clean Catch Urine Color Yellow (Lt Yel-Yel) Urine Clarity Clear (Clear/Hazy) Urine pH 6.0 (5.0-7.0) Ur Specific [place] 1.021 (1.001-1.035) Urine Protein 2+ A (Neg - Trace) Urine Glucose (UA) Negative (Negative) Urine Ketones Negative (Negative) Urine Blood 1+ A (Negative) Urine Nitrite Negative (Negative) Urine Bilirubin Negative (Negative) Urine Urobilinogen (Auto) Negative (0.0-1.0) mg/dL Ur Leukocyte Esterase Negative (Negative) Urine RBC 6 H (0-3) /hpf Urine WBC 3 (0-5) /hpf Ur Squamous Epith Cells 0 (0-5) /hpf Urine Bacteria None (None) Hyaline Casts < 1 (0-1) /hpf Critical Care Time Critical Care Time Critical Care Time: Yes Total Critical Care Time (min.): 45 Attestation: The high probability of sudden, clinically significant deterioration in the patient?s condition required the highest level of my preparedness to intervene urgently. The services I provided to this patient were to treat and/or prevent clinically significant deterioration. Services included the following: chart data review, reviewing nursing notes and/or old charts, documentation time, foreign law consultant collaboration regarding findings and treatment options, medication orders and management, direct patient care, vital sign assessments and ordering, interpreting and reviewing diagnostic studies and lab tests. Aggregate critical care time includes only time during which I was engaged in work directly related to the patient?s care, as described above, whether at bedside or elsewhere in the Emergency Department. It did not include time spent performing other reported procedures or the services of residents, students, nurses or physician assistants. Discharge Plan Plan Patient Disposition: Admit Acute Care w/in Hospital Patient condition on transfer: Stable Problem List Clinical Impression: Acute on chronic kidney failure, Tachycardia with heart rate 100-120 beats per minute, Hypertensive emergency, Cellulitis of right thigh
--- NOTE | 2024-05-22 22:35 | EKG_ITS ---
[facility] Test Date: 2024-05-22 Pat Name: MARY CALDERON Department: Room: - Gender: Male Poster: : 1980 Requested By: Suzanna Galvin Order Number: [id number] Reading MD: Suzanna Galvin Measurements Intervals [place] Rate: 106 P: 43 WI: 154 QRS: 4 QRSD: 76 T: 32 QT: 314 QTc: 418 Interpretive Statements SINUS TACHYCARDIA ABNORMAL RHYTHM ECG Compared to ECG 05/19/2024 21:37:10 No significant changes /store/S0/[id number]/[id number].pdf
[2024-05-22] MEDS: PIPER/TAZO 3.375 GM 3.375 GM/50 ML BAG IV (22:42)
[2024-05-22] MEDS: SODIUM CHLORIDE 0.9% 2190 ML IV (22:42)
[2024-05-22 22:45] VITALS: PULSE 107
[2024-05-22 23:00] LABS: Partial Thromboplastin Time 32.3 Seconds (22.0-36.0); Prothrombin Time 11.2 Seconds (9.0-12.2)
[2024-05-22 23:11] LABS: B-Type Natriuretic Peptide 147 pg/mL (0-100)
[2024-05-22 23:33] LABS: LDH (Lactate Dehydrogenase) 304 U/L (120-246); Lipase 50 U/L (12-53); Phosphorous 3.2 mg/dL (2.4-5.1); Troponin I < 0.020 ng/mL (0.0-0.045)
[2024-05-23] VITALS (16 sets, daily range): BP systolic 115–171; BP diastolic 69–104; PULSE 94–116; RESP 17–20; TEMP 36.4–37.3; O2SAT 94–99; BMI 24.7
[2024-05-23] MEDS: hydrALAZINE INJ 20 MG/ML VIAL IV (00:26)
[2024-05-23 00:41] LABS: Glucose Estimated Average 114 mg/dL (80-131); Hemoglobin A1C 5.6 % Hgb (4.8-6.0)
[2024-05-23 00:45] LABS: Collection Type, Urine Clean Catch; Squamous Epithelial Cell,Urine 0 /hpf (0-5)
[2024-05-23 00:49] LABS: Bilirubin,Urine Negative (Negative); Clarity,Urine Clear (Clear/Hazy); Color,Urine Yellow (Lt Yel-Yel); Glucose, Urine Negative (Negative); Ketones,Urine Negative (Negative)
[2024-05-23 00:50] LABS: Blood,Urine 1+ (Negative); Hyaline Casts,Urine < 1 /hpf (0-1); Leukocyte Esterase,Urine Negative (Negative); Nitrite,Urine Negative (Negative); Protein,Urine 2+ (Neg - Trace); RBC,Urine 6 /hpf (0-3); Specific Gravity,Urine 1.021 (1.001-1.035); Urobilinogen,Urine Negative mg/dL (0.0-1.0); WBC,Urine 3 /hpf (0-5)
--- NOTE | 2024-05-23 02:26 | XR_ITS ---
Examination: CT right lower extremity, without contrast. 2-D sagittal reconstructions. 2-D coronal reconstructions. 3-D reconstructions. Date and time of exam:May 23 2024 0403 hrs. Indications: Right upper leg swelling and pain one week post spider bite to the right upper thigh CTDI: vol (mGy):13.38 DLP: (mGycm):923 Technique: Multiple 1.25 mm axial sections of the right thigh have been obtained. Without intravenous contrast 2-D sagittal and coronal reconstructions have been obtained. 3-D reconstructions have been obtained. Low dose protocols were performed. One or more of the following dose reduction techniques were used; automated exposure control, adjustment of the mA and/or KV according to patient size, use of iterative reconstruction technique. Findings: Marked thickening of the urinary bladder wall Extensive edema in the subcutaneous fatty tissue anterior lateral posterior and medial to the right femur No discrete soft tissue abscess No cortical bone destruction involving the right hip or shaft of the right femur Minimal knee effusion Impression: Extensive cellulitis pattern Negative for soft tissue abscess on this noncontrast study Negative for osteomyelitis If symptoms persist, consider MRI femur without contrast follow-up
--- NOTE | 2024-05-23 02:28 | PD.RESHP ---
Documentation for date of: 05/23/24 HPI History of Present Illness Chief complaint: Abscess R Thigh History of present illness: 43-year-old male past medical history of hypertension, iia-ozpcplu-vqdaspwab type 2 diabetes, iron deficiency anemia, CKD stage IIIa, possible POTS (currently being worked up) presenting to the ED with worsening right thigh infection site. Patient presented to the ED on Monday with left upper extremity/thigh edema and redness and was given outpatient course of doxycycline and Keflex; patient has been taking the medications, however infection site is worsening. Patient states that he has pain while ambulating; however, the pain subsides while he is resting and laying flat. Patient denies noticing any bug bites, denies being scratched by his cat and denies camping. Patient also denies any trauma to the area and denies using illicit drugs, smoking cigarettes. Patient follows [facility] for chronic medical problems (diabetes and fluctuating heart rate/blood pressure); patient has decreased A1c from 8.5 to 5.6 within several months this year. Patient denies having any fever/chills prior to the onset of these episodes; moreover, denies having concerning symptoms such as shortness of breath, chest pain, palpitations, dysuria, melena, hematochezia or hematemesis. Patient does state that he has been having increased urinary frequency lately, urine is light yellow but denies having any foaming or hematuria. Medical history: As above Surgical history: Full dental extraction in 2019; currently has preimplants Allergies: NKDA Medications: Stop taking atorvastatin 40 mg, Coreg 3.125 mg p.o. twice daily, ferrous sulfate 325 mg, vitamin D3; recently started on doxycycline 100 mg p.o. twice daily and Keflex 500 p.o. daily for 7 days Family history: Noncontributory Social history: Patient is from [place], works in the [employer], denies smoking tobacco, illicit drug use but states that he occasionally drinks alcohol greater social outings couple times a year. ROS: All 12 systems assessed and the patient denies unless otherwise stated in HPI In the ED, patient presented hypertensive with blood pressure fluctuating between systolic 1 40-1 80, heart rate in the 110s, respiratory rate 18, temperature afebrile and satting 98 on room air. Pertinent lab findings included WBC 16.6, hemoglobin 7.6 (MCV 84), platelet 378, BUN 37, creatinine 2.5, lactic 0.6, AST 24, ALT 68, alk phos 130, lactate dehydration 304, troponin within normal limits, BNP 147. Urinalysis no signs of urinary tract infection; however, there is 2+ proteinuria. EKG shows sinus tachycardia. Patient will be admitted for worsening right thigh abscess; CT of the right femur ordered and the patient started on IV Unasyn and vancomycin, blood cultures ordered and pending. Exam Vital Signs Temp Pulse Resp BP Pulse Ox O2 Del Method 98.9 F 114 H 18 136/69 H 95 Room Air 05/23/24 02:23 05/23/24 02:23 05/23/24 02:23 05/23/24 02:23 05/23/24 02:23 05/23/24 02:23 Narrative Exam Physical Exam: GENERAL: Awake, answering questions appropriately, appears stated age HEENT: NC/AT. Moist mucosa. PERRLA/EOMI. CARDIO: Heart RRR, no obvious murmurs, no JVD. PULM: No coughing or visible SOB. Lungs CTA B/L. GI: Abdomen soft, NT/ND, +BS. SKIN/MSK/EXT: R>L lower extremity appears larger. 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, no focal neurological deficits Results: Labs 05/23/24 05:08 05/23/24 05:08 Labs: Short CBC 05/22/24 Range/Units 20:32 WBC 16.6 H (3.8-10.6) Thou/mm3 Hgb 7.6 L (13.5-16.0) g/dL Hct 23.2 L (41.0-53.0) % Plt Count 378 D (140-440) Thou/mm3 BMP 05/22/24 20:32 Sodium 138 Potassium 4.3 Chloride 105 Carbon Dioxide 25.3 BUN 37 H Creatinine 2.5 H D Glucose 112 H Calcium 8.8 Cardiac Enzymes 05/22/24 Range/Units 20:32 Troponin I < 0.020 (0.0-0.045) ng/mL Liver Function 05/22/24 Range/Units 20:32 Total Bilirubin 0.3 (0.3-1.2) mg/dL AST 24 (0-34) U/L ALT 68 H (10-49) U/L Alkaline Phosphatase 130 H D (46-116) U/L Albumin 4.3 D (3.5-5.0) gm/dL Urine 05/23/24 Range/Units 00:13 Urine Color Yellow (Lt Yel-Yel) Urine Clarity Clear (Clear/Hazy) Urine pH 6.0 (5.0-7.0) Ur Specific [place] 1.021 (1.001-1.035) Urine Protein 2+ A (Neg - Trace) Urine Glucose (UA) Negative (Negative) Quality Measures Quality Measures sepsis Current suspected stage: sepsis Possible source: skin/soft tissue Blood cultures ordered: yes Antibiotic ordered: Yes Medications Home Medications and Allergies Allergies Allergy/AdvReac Type Severity Reaction Status Date / Time No Known Allergies Allergy Verified 05/19/24 20:02 Visit Medications Acetaminophen (Acetaminophen 325 Mg Tablet) 650 mg PO Q6H PRN PRN Reason: PAIN SCALE 1-3 (mild Stop: 06/22/24 02:21 Heparin Sodium (Porcine) (Heparin Sod Inj 5000 Unit/Ml Vial) 5,000 unit SC Q12HR BELINDA Stop: 06/06/24 08:59 Ampicillin Sodium/Sulbactam (Sodium 3 gm/ Sodium Chloride) 100 mls @ 200 mls/hr IV Q6HR BELINDA Stop: 05/30/24 02:29 Ondansetron HCl (Ondansetron Inj 2 Mg/Ml Inj 2 Ml) 4 mg IV Q6H PRN; Protocol PRN Reason: NAUSEA OR VOMITING Stop: 06/22/24 02:21 Pharmacy Consult (Vancomycin Pharmacy To Dose 1 Each Each) 1 each IV QDAY BELINDA Stop: 06/22/24 08:59 Sennosides (Senna Tablet) 1 tab PO QDAY PRN; Protocol PRN Reason: constipation Stop: 06/22/24 02:21 Discontinued Medications Hydralazine HCl (Hydralazine Inj 20 Mg/Ml Vial) 20 mg IV X1 ONE Stop: 05/23/24 00:20 Last Admin: 05/23/24 00:26 Dose: 20 mg Sodium Chloride (Ns) 2,190 mls @ 2,190 mls/hr 30 ml/kg infuse over 60 min (2190 ml) IV .Q1H ONE Stop: 05/22/24 23:34 Last Infusion: 05/23/24 00:16 Dose: Infused Piperacillin/Tazobactam/Dextrose (Zosyn) 3.375 gm in 50 mls @ 100 mls/hr IV X1 ONE Stop: 05/22/24 23:04 Last Infusion: 05/23/24 00:16 Dose: Infused Assessment & Plan Plan 43-year-old male past medical history of hypertension, efj-yeryeka-koaxcxwux type 2 diabetes, iron deficiency anemia, CKD stage IIIa, possible POTS (currently being worked up) presenting to the ED with worsening right thigh infection site will be admitted for worsening right thigh abscess; CT of the right femur ordered and the patient started on IV Unasyn and vancomycin, blood cultures ordered and pending. #Sepsis 2/2 to #R thigh abscess #Leukocytosis Patient presented on 05/19/24 with erythema edema for R thigh; discharged from ED with Keflex and Doxycycline Presenting on 05/22 with worsening redness and pain with ambulation with end organ damage (elevated Cr with high blood pressure) and did not improve with 3 days of outpatient abx CT from 05/19 showed edema in the subcutaneous fatty tissue thigh, no soft tissue abscess On exam there is a pinpoint lesion with surrounding edema/hard to touch + R>L lower extremity In ED received ~2L of NS and x1 of Zosyn Plan: Started patient on Unasyn and Vanc CT of femur ordered to reassess for abscess U/S Venous doppler Blood cultures sent #RAULITO on CKD stage 3 #Diabetic Nephropathy #Proteinuria Patient has history of poorly controlled diabetes in the past; A1c of ~12 Current A1c of 5.6 Presenting with worsening kidney function; Cr 1.7 => 2.1 => 2.5 Plan: Recieved 2L of NS Treating infection as above Follow-up with morning labs Avoid nephrotoxic agents Renally dose medications Renal diet #Anemia of Chronic Disease Labs from October 2023 show reduced iron panel with high/normal ferritin Likely 2/2 to kidney disease vs. iron deficiency vs. MDS Plan: Consider repeat iron panel Follow-up outpatient with hematology #Non-insulin dependent diabetes mellitus, type 2 Last A1c of 5.6 Patient on Mounjaro weekly injections; next dose Monday05/25/24 Plan: SSI #Possible POTS? #EBV positive Within medical record, not pertinent to current presentation Hospital Management: Line - PIV Bowel - Senna prn Diet - Renal GI prophylaxis - not needed DVT prophylaxis - heparin subq Dispo - IV abx for R thigh abcess, CT and U/S pending, blood cultures ordered Code - Full Patient seen and examined with attending Dr. Estrada and senior resident Dr. Suyapa Bledsoe, PGY-1 Attending Provider Attestation/Addendum Face to face evaluation was performed by me. I have personally seen and examined the patient. I discussed the assessment and plan with the entire medicine team. I reviewed available medical records, imaging studies, laboratory results. I agree with the above subjective data, objective findings, assessment and plan except as corrected by me or noted below Right thigh lateral aspect cellulites R leg pain and swelling due to above Anemia of CKD stage 3 - fu Venous Doppler LE. Obtain CT R LE, w/o IV ABxs Unasyn and vancomycin for now. Blood cultures 2 sets - IV fluids, avoid nephrotoxic agents -Monitor Hb transfuse if < 7 form medicine stand point -Increase coreg to 6.25 mg BID< if BP still high would probably add CCB maybe nifedipine or nicardipine
--- NOTE | 2024-05-23 02:51 | XR_ITS ---
Examination: Duplex scan of the lower extremity, unilateral right complete Date and time of exam: May 23, 2024 0331 hrs. Indications: Right leg redness swelling and pain beginning 5 days ago post spider bite Technique: Duplex scan of the extremity veins using B-mode/grayscale imaging and Doppler spectral analysis and color flow Attention is directed to internal echogenicity, compression and augmentation involving these veins, color flow assessment, spectral analysis Findings: Major deep venous structures in the extremity demonstrate normal course and caliber. There is no evidence of deep vein thrombosis. Normal color flow and spectral analysis Diffuse leg edema Impression: Negative for DVT..
[2024-05-23 05:14] LABS: Basophils # (Auto) 0.1 Thou/mm3 (0.0-0.2); Basophils % (Auto) 0 % (0-2.5); Eosinophils # (Auto) 0.3 Thou/mm3 (0.0-0.5); Eosinophils % (Auto) 2 % (0-10); Immature Granulocytes % (Auto) 1 % (0-0); Immature Granulocytes Auto 0.11 Thou/mm3 (0.00-0.00); Lymphocytes # (Auto) 1.8 Thou/mm3 (1.0-4.8); Lymphocytes % (Auto) 11 % (10-50); Mean Corpuscular HGB Conc 32.5 g/dl (31.0-37.0); Mean Corpuscular Hemoglobin 27.4 pg (25.0-35.0); Mean Corpuscular Volume 84 fL (80-100); Monocytes # (Auto) 1.2 Thou/mm3 (0.0-0.8); Monocytes % (Auto) 7 % (0-12); Neutrophils # (Auto) 13.2 Thou/mm3 (1.8-7.7); Neutrophils % (Auto) 80 % (37-80); Nucleated Red Blood Cell % 0 /100 WBC (0); Platelet Count 335 Thou/mm3 (140-440); RDW Standard Deviation 41.1 fL (35.1-43.9); Red Blood Count 2.37 Miln/mm3 (4.50-5.90); White Blood Count 16.7 Thou/mm3 (3.8-10.6)
--- NOTE | 2024-05-23 05:27 | PRELIM_ITS ---
CT right femur without intravenous contrast (axial sections with sagittal and coronal reformats) Dece mber 2023 at 0403 hours Clinical History: Abscess, right upper thigh. Technique: Axial images wit h coronal and sagittal reconstructions.Radiation Dose: Total exam DLP 923 mGy/cm. Comparison: None. F indings:There is diffuse subcutaneous edema in the right thigh. Mild edema in the right vastus latera lis muscle. No discrete fluid collection on this noncontrast exam. No soft tissue emphysema. No find ings of osteomyelitis.Impression:Right thigh edema may represent cellulitis/myositis. No visible absc ess. Report Electronically Signed By: Darion Lieberman 05/23/2024 5:26:32 AM [EST]
[2024-05-23 05:28] LABS: Hemoglobin 6.5 g/dL (13.5-16.0)
[2024-05-23 05:42] LABS: Alanine Aminotransferase 56 U/L (10-49); Albumin, Serum 3.5 gm/dL (3.5-5.0); Albumin/Globulin Ratio 1.2 (1.2-2.2); Alkaline Phosphatase 115 U/L (46-116); Anion Gap 8 (7-16); Aspartate Amino Transferase 42 U/L (0-34); BUN/Creatinine Ratio 18 Ratio (12-20); Bilirubin,Total 0.3 mg/dL (0.3-1.2); Blood Urea Nitrogen 40 mg/dL (9-23); Calcium 8.1 mg/dL (8.3-10.6); Calcium (Corrected) 8.5 mg/dL (8.5-10.1); Carbon Dioxide 21.7 mMol/L (20.0-31.0); Chloride 108 mMol/L (98-107); Creatinine (Component) 2.2 mg/dL (0.6-1.3); Estimated Creatinine Clearance 43.8 mL/min (>60); Globulin 2.9 gm/dL (2.3-3.5); Glucose 131 mg/dL (74-106); Magnesium 1.9 mg/dL (1.6-2.6); Osmolality,Calculated 287 (275-295); Phosphorous 3.2 mg/dL (2.4-5.1); Potassium 4.2 mMol/L (3.4-5.1); Sodium 138 mMol/L (136-145); Thyroid Stimulating Hormone 1.33 uIU/mL (0.55-4.78); Total Protein 6.4 gm/dL (5.7-8.2); eGFR 37 See Note
--- NOTE | 2024-05-23 05:53 | PC.NURSE ---
DR. MTZ CAME TO PATIENTS BEDSIDE TO EXPLAIN THE RISK AND BENEFITS BLOOD TRANSFUSION AND SIGN CONSENT. PATIENT REQUESTED TO HAVE SOME TIME TO THINK ABOUT HAVING BLOOD TRANSFUSION DONE. PROVIDER AGREED TO CAME BACK WHEN PATIENT IS READY TO SIGN CONSENT.
--- NOTE | 2024-05-23 05:58 | PRELIM_ITS ---
Right lower extremity venous Doppler ultrasound. May 23, 2024 at 0331 hours Clinical history: R> L lower extremity swelling. Technique: Duplex scan of the right lower extremity deep venous systems w as performed utilizing 2D grayscale imaging, Doppler spectral analysis and color flow Doppler and wit h compression. Comparison: No prior study is available for comparison. Findings: Mckeon scale, color fl ow and spectral Doppler evaluation of the right lower extremity deep venous system was performed. The greater saphenous vein confluence, common femoral, femoral, popliteal and calf veins are patent and compressible. Normal augmentation and respiratory variation are noted. There is no evidence of occlus tej or nonocclusive thrombus. There are no fluid collections. Normal-sized right inguinal lymph nodes . Lower extremity edema.Impression: No sonographic evidence of deep venous thrombosis in the right lo wer extremity. Report Electronically Signed By: Darion Lieberman 05/23/2024 5:58:17 AM [EST]
--- NOTE | 2024-05-23 06:30 | PC.NURSE ---
Myron Cook received telphone report from MYRON De Leon in ER.
[2024-05-23] MEDS: VANCOMYCIN/D5W 1,250 MG IVPB 250 ML 120 MG IV (07:47)
--- NOTE | 2024-05-23 09:36 | PC.NURSE ---
Pt given time to review blood transfusion pamphlet, spoke with MD, questions asked and answered. Verbalizes consent for transfusion. Patient stated that MD was going to redraw blood to check levels and if after redraw blood transfusion is deemed necessary he will be ok receiving it. This nurse will obtain written consent.
--- NOTE | 2024-05-23 09:52 | ESPR_ITS ---
<Statement entered by Marlon Gutierrez MD - 05/24/24 12:27> I have discussed and was present for the essential components of the history, physical examination, diagnosis, and treatment plan with the resident. I agree with the patient's care as documented by the resident and amended herein by me. Marlon Gutierrez MD. <Statement entered by Alberto Payne MD - 05/23/24 16:00> Patient was seen and examined at the bedside. Patient presented with right upper lateral thigh swelling with possible abscess versus cellulitis formation. He is currently on IV Unasyn. Will continue with current antibiotic therapy and follow the blood culture results. Patient also had drop in hemoglobin there for 1 unit PRBC was transfused will follow on post H&H. All labs and orders were reviewed. I saw and examined the patient, and I agree with current management stated by Dr Romario MD,PGY1. Plan of care was discussed with the attending physician and resident physician. Disclaimer: Despite multiple revisions, due to the dictation software being used, the document bellow may not be free of grammatical errors including phonetic/typographic errors. However, this does not deter from our commitment to providing health care in the patient's best interest in mind. Dr. June MD, PGY 2 Documentation for date of: 05/23/24 Subjective Subjective Interval history: Patient was seen and examined at bedside this AM. No acute exents overnight. Patient tolerating diet, adequate urine output and mentation is at baseline. Patient endorses improvement of thigh pain. On admission was found to be 6.5. Patient was counseled and the need for PRBC transfusion, however he opted for some time to think about it and ask for repeat labs. Repeat Hb 6.2, patient now amenable to blood transfusion. Posttransfusion H&H was ordered. Patient currently on Unasyn for treatment of right thigh cellulitis. Femur CT completed on 05/23/2024 findings include: Extensive edema and subcutaneous fatty tissue anterior lateral posterior and medial to right femur. Minimal knee effusion. Extensive cellulitis pattern, negative for osteomyelitis. Venous Doppler also ruled out B/L DVT. Exam Vital Signs Temp Pulse Resp BP Pulse Ox O2 Del Method O2 Flow Rate 98.3 F 110 H 18 138/80 H 96 Nasal Cannula 2 05/23/24 08:00 05/23/24 08:00 05/23/24 08:00 12/05/24 08:00 05/23/24 08:00 05/23/24 08:00 05/23/24 08:00 Narrative Exam Constitutional Alert, oriented x 3 and comfortable. Young male. Male and moist MM . On O2 via NC HEENT Vision grossly intact. Patent nares. Trachea midline Respiratory Chest normal on inspection and clear auscultation bilaterally Cardiovascular S1 and S2 audible, RRR. No murmurs carotid bruit. No gross JVD. Abdominal Soft and non tender to palpation in all quadrants. BS + Genitourinary No bladder tenderness, no flank pain. Normal to palpation Musculoskeletal Extremities tone within normal limits. No LE edema. Neurological CN II - XII grossly intact. Extremity motor and sensation grossly intact. Skin Warm, dry and intact. 5x5 cm induration on upper lateral aspect of right thigh, mildly tender to palpation, no drainage. Punctum present Psychiatric Patient has good affect, is cooperative Objective Labs 05/23/24 10:36 05/23/24 05:08 Labs: Laboratory Results - last 24 hr 05/22/24 05/23/24 05/23/24 20:32 00:13 05:08 WBC 16.6 H 16.7 H RBC 2.75 L 2.37 L Hgb 7.6 L 6.5 L* Hct 23.2 L 20.0 L* MCV 84 84 MCH 27.6 27.4 MCHC 32.8 32.5 RDW Std Deviation 41.5 41.1 Plt Count 378 D 335 D Neut % (Auto) 79 80 Lymph % (Auto) 11 11 [place] % (Auto) 7 7 Eos % (Auto) 2 2 Baso % (Auto) 0 0 Neut # (Auto) 13.2 H 13.2 H Lymph # (Auto) 1.9 1.8 [place] # (Auto) 1.1 H 1.2 H Eos # (Auto) 0.3 0.3 Baso # (Auto) 0.1 0.1 Immature Gran # (Auto) 0.10 H 0.11 H Absolute Nucleated RBC 0.00 0.00 Immature Gran % 1 H 1 H Nucleated RBC % 0 0 PT 11.2 INR 1.0 APTT 32.3 Sodium 138 138 Potassium 4.3 4.2 Chloride 105 108 H Carbon Dioxide 25.3 21.7 Anion Gap 8 8 BUN 37 H 40 H Creatinine 2.5 H D 2.2 H Estim Creat Clear Calc 38.5 L 43.8 L eGFR 31 L 37 L BUN/Creatinine Ratio 15 18 Glucose [address] Glu mg/dL 114 Hemoglobin A1c 5.6 Calculated Osmolality 285 287 Lactic Acid 0.6 Calcium 8.8 8.1 L Corrected Calcium 8.8 8.5 Phosphorus 3.2 3.2 Magnesium 2.0 1.9 Total Bilirubin 0.3 0.3 AST 24 42 H ALT 68 H 56 H Alkaline Phosphatase 130 H D 115 Lactate Dehydrogenase 304 H Troponin I < 0.020 B-Natriuretic Peptide 147 H Total Protein 7.7 6.4 Albumin 4.3 D 3.5 D Globulin 3.4 2.9 Albumin/Globulin Ratio 1.3 1.2 Lipase 50 D Procalcitonin 0.31 TSH 1.33 Ur Collection Type Clean Catch Urine Color Yellow Urine Clarity Clear Urine pH 6.0 Ur Specific [place] 1.021 Urine Protein 2+ A Urine Glucose (UA) Negative Urine Ketones Negative Urine Blood 1+ A Urine Nitrite Negative Urine Bilirubin Negative Urine Urobilinogen (Auto) Negative Ur Leukocyte Esterase Negative Urine RBC 6 H Urine WBC 3 Ur Squamous Epith Cells 0 Urine Bacteria None Hyaline Casts < 1 Blood Type Antibody Screen Crossmatch Blood Bank Wristband ID 05/23/24 05:55 WBC RBC Hgb Hct MCV MCH MCHC RDW Std Deviation Plt Count Neut % (Auto) Lymph % (Auto) [place] % (Auto) Eos % (Auto) Baso % (Auto) Neut # (Auto) Lymph # (Auto) [place] # (Auto) Eos # (Auto) Baso # (Auto) Immature Gran # (Auto) Absolute Nucleated RBC Immature Gran % Nucleated RBC % PT INR APTT Sodium Potassium Chloride Carbon Dioxide Anion Gap BUN Creatinine Estim Creat Clear Calc eGFR BUN/Creatinine Ratio Glucose Estimated Ave Glu mg/dL Hemoglobin A1c Calculated Osmolality Lactic Acid Calcium Corrected Calcium Phosphorus Magnesium Total Bilirubin AST ALT Alkaline Phosphatase Lactate Dehydrogenase Troponin I B-Natriuretic Peptide Total Protein Albumin Globulin Albumin/Globulin Ratio Lipase Procalcitonin TSH Ur Collection Type Urine Color Urine Clarity Urine pH Ur Specific [place] Urine Protein Urine Glucose (UA) Urine Ketones Urine Blood Urine Nitrite Urine Bilirubin Urine Urobilinogen (Auto) Ur Leukocyte Esterase Urine RBC Urine WBC Ur Squamous Epith Cells Urine Bacteria Hyaline Casts Blood Type O Positive Antibody Screen NEGATIVE Crossmatch See Detail Blood Bank Wristband ID Yes Quality Measures Quality Measures sepsis Current suspected stage: sepsis Possible source: skin/soft tissue Blood cultures ordered: completed in ED Antibiotic ordered: Yes Assessment & Plan Assessment Current Active Medications: Generic Name Dose Route Start Last Admin Trade Name Freq PRN Reason Stop Dose Admin Acetaminophen 650 mg 05/23/24 02:22 Acetaminophen 325 Mg Tablet PO 06/22/24 02:21 Q6H PRN PAIN SCALE 1-3 (mild Carvedilol 6.25 mg 05/23/24 09:00 Carvedilol 3.125 Mg Tablet PO 06/22/24 08:59 BID BELINDA Dextrose 25 ml 05/23/24 03:03 Dextrose 50%-Water Inj 50 Ml Syringe IV 06/22/24 03:02 Q15MIN PRN BG 50-70 responsive npo pt Dextrose 50 ml 05/23/24 03:03 Dextrose 50%-Water Inj 50 Ml Syringe IV 06/22/24 03:02 Q15MIN PRN BG <50 OR BG <70 & pt unresponsive Glucagon 1 mg 05/23/24 03:03 Glucagon Inj 1 Mg Vial IM Q15MIN PRN BG <70, and no IV access Heparin Sodium (Porcine) 5,000 unit 05/23/24 09:00 Heparin Sod Inj 5000 Unit/Ml Vial SC 06/06/24 08:59 Q12HR [facility] Ampicillin Sodium/Sulbactam 100 mls @ 200 mls/hr 05/23/24 18:00 Sodium 3 gm/ Sodium Chloride IV 05/30/24 17:59 Q6HR [facility] Magnesium Sulfate 2 gm in 50 mls @ 25 mls/hr 05/23/24 08:41 Magnesium Sulfate Ivpb IV 05/23/24 10:40 X1 ONE Insulin Human Lispro 0 unit 05/23/24 07:30 05/23/24 07:51 Insulin Lispro (Admelog) 1 Unit/0.01 Ml Unit SC 06/22/24 07:29 Not Given ACHS [facility] Protocol Ondansetron HCl 4 mg 05/23/24 02:22 Ondansetron Inj 2 Mg/Ml Inj 2 Ml IV 06/22/24 02:21 Q6H PRN NAUSEA OR VOMITING Protocol Pharmacy Consult 1 each 05/23/24 09:00 Vancomycin Pharmacy To Dose 1 Each Each IV 06/22/24 08:59 QDAY PRN RX Sennosides 1 tab 05/23/24 02:22 Senna Tablet PO 06/22/24 02:21 QDAY PRN constipation Protocol Plan 43-year-old male past medical history of hypertension, ywx-gdqgklo-ftdbbrihl type 2 diabetes, iron deficiency anemia, CKD stage IIIa, possible POTS (currently being worked up) presenting to the ED with worsening right thigh infection site will be admitted for worsening right thigh abscess; CT of the right femur ordered and the patient started on IV Unasyn and vancomycin, blood cultures ordered and pending. #Acute blood loss anemia #Anemia of Chronic Disease Labs from October 2023 show reduced iron panel with high/normal ferritin Likely 2/2 to kidney disease vs. iron deficiency vs. MDS Baseline Hb between 7?9. On admission Hb 6.5. Patient was counseled and the need for PRBC transfusion, however he opted for some time to think about it and ask for repeat labs. Repeat Hb 6.2, patient now amenable to blood transfusion. Posttransfusion H&H was ordered. Plan: ? 1 unit PRBC ordered to be transfused ? Posttransfusion H&H ordered. ? Continue oral iron, home medication #Sepsis 2/2 to?resolving #R thigh abscess #Leukocytosis Patient presented on 05/19/24 with erythema edema for R thigh; discharged from ED with Keflex and Doxycycline Presenting on 05/22 with worsening redness and pain with ambulation with end organ damage (elevated Cr with high blood pressure) and did not improve with 3 days of outpatient abx CT from 05/19 showed edema in the subcutaneous fatty tissue thigh, no soft tissue abscess On exam there is a pinpoint lesion with surrounding edema/hard to touch + R>L lower extremity In ED received ~2L of NS and x1 of Zosyn Femur CT completed on 05/23/2024 findings include: Extensive edema and subcutaneous fatty tissue anterior lateral posterior and medial to right femur. Minimal knee effusion. Extensive cellulitis pattern, negative for osteomyelitis. Venous Doppler also ruled out B/L DVT. Plan: ? Continue Unasyn 3 g IV Q6 hourly for treatment of right thigh cellulitis started on [05/23 ? Wound care #RAULITO on CKD stage 3?improving #Diabetic Nephropathy #Proteinuria Patient has history of poorly controlled diabetes in the past; A1c of ~12 Current A1c of 5.6 Presenting with worsening kidney function; Cr 1.7 => 2.1 => 2.5 Recieved 2L of NS Currently CR downtrended to 2.2 Plan: ? Encourage oral intake ?Avoid nephrotoxic agents ?Renally dose medications ?Renal diet #Non-insulin dependent diabetes mellitus, type 2 Last A1c of 5.6 Patient on Mounjaro weekly injections; next dose Monday05/25/24 Plan: ?To cover for any insulin spikes SSI #Possible POTS? #EBV positive To follow-up with PCP and cardiology as outpatient for further workup Health maintenance: Disposition: For 1 unit PRBC infusion and posttransfusion H&H. Once Hb remains stable at >7 tomorrow morning for possible discharge with wound care and oral antibiotics Diet: Low consistent carb Lines: pIVs GI Prophylaxis: None Thrombo Prophylaxis: SCDs Code status: FULL CODE Plan of care discussed with Attending Dr. Gutierrez and PGY2 Dr. June Metz MD PGY 1
[2024-05-23] MEDS: carVEDILOL 3.125 MG TABLET 6.25 MG PO ×2 (10:15→20:09)
[2024-05-23] MEDS: AMPICILLIN/SULBAC INJ 3 GM in SODIUM CHLORIDE 0.9% (P) 100 ML IV ×3 (10:17→23:36)
[2024-05-23] MEDS: HEPARIN SOD INJ 5000 UNIT/ML VIAL SC ×2 (10:23→20:10)
--- NOTE | 2024-05-23 10:26 | PC.SS ---
Patient Carlos Garay is a 43 year-old male admitted for Soft Tissue Infection, RAULITO. SS met with the patient at bed side to conduct initial assessment and to discuss discharge planning. Patient appeared alert and oriented to place time and situation. Patient confirmed demographic information. Patient identifies his friend Naima Davies [phone] as his surrogate decision maker. Patient resides at home with his family. Pt states he is able to complete all ADL?s independently, and does not utilize any source of DME to assist with ambulation. Choice of pharmacy is [facility], and PCP is Dr. Renee at [facility]. Family will provide transportation on behalf of the patient at the time of discharge. No further intervention required at this time, social media executive would be available to address any further concerns. Discharge plan: Home Next of Kin: Friend Naima Davies [phone] PCP ([facility]) Dr. Renee.
[2024-05-23] MEDS: Magnesium Sulfate 2 GM Ivpb 2 GM/50 ML BAG IV (10:59)
[2024-05-23 11:03] LABS: Hematocrit 19.2 % (41.0-53.0); Hemoglobin 6.2 g/dL (13.5-16.0)
[2024-05-23] MEDS: INSULIN LISPRO (AdmeLOG) 1 UNIT/0.01 ML UNIT SC ×2 (12:03→17:40)
--- NOTE | 2024-05-23 16:42 | PC.NURSE ---
Consent obtained for blood transfusion. Transfusion initiated @2530. Patient tolerating well at this time.
[2024-05-23] MEDS: FERROUS SULF 325 MG TABLET PO (17:39)
[2024-05-23 18:15] LABS: Hematocrit 21.9 % (41.0-53.0)
[2024-05-23 18:41] LABS: Hemoglobin 7.2 g/dL (13.5-16.0)
--- NOTE | 2024-05-23 19:19 | PC.NURSE ---
Contacted Dr. Bledsoe and gave him a follow up on patient's hbg and hct results.
[2024-05-24] VITALS (8 sets, daily range): BP systolic 127–162; BP diastolic 71–91; PULSE 82–105; RESP 16–18; TEMP 36.6–37.2; O2SAT 87–98
[2024-05-24] MEDS: AMPICILLIN/SULBAC INJ 3 GM in SODIUM CHLORIDE 0.9% (P) 100 ML IV ×2 (05:15→11:49)
[2024-05-24 05:50] LABS: Basophils % (Auto) 0 % (0-2.5); Eosinophils # (Auto) 0.3 Thou/mm3 (0.0-0.5); Eosinophils % (Auto) 2 % (0-10); Hematocrit 21.7 % (41.0-53.0); Immature Granulocytes % (Auto) 1 % (0-0); Immature Granulocytes Auto 0.09 Thou/mm3 (0.00-0.00); Lymphocytes % (Auto) 17 % (10-50); Mean Corpuscular HGB Conc 32.7 g/dl (31.0-37.0); Mean Corpuscular Hemoglobin 27.7 pg (25.0-35.0); Mean Corpuscular Volume 85 fL (80-100); Monocytes # (Auto) 0.9 Thou/mm3 (0.0-0.8); Monocytes % (Auto) 8 % (0-12); Neutrophils # (Auto) 8.4 Thou/mm3 (1.8-7.7); Neutrophils % (Auto) 72 % (37-80); Nucleated Red Blood Cell % 0 /100 WBC (0); Platelet Count 278 Thou/mm3 (140-440); RDW Standard Deviation 42.2 fL (35.1-43.9); Red Blood Count 2.56 Miln/mm3 (4.50-5.90); White Blood Count 11.7 Thou/mm3 (3.8-10.6)
[2024-05-24 05:51] LABS: Hemoglobin 7.1 g/dL (13.5-16.0)
[2024-05-24 05:55] LABS: Prothrombin Time 10.5 Seconds (9.0-12.2)
[2024-05-24 06:15] LABS: Alanine Aminotransferase 59 U/L (10-49); Albumin, Serum 3.5 gm/dL (3.5-5.0); Albumin/Globulin Ratio 1.2 (1.2-2.2); Alkaline Phosphatase 116 U/L (46-116); Anion Gap 6 (7-16); Aspartate Amino Transferase 44 U/L (0-34); BUN/Creatinine Ratio 19 Ratio (12-20); Bilirubin,Total 0.2 mg/dL (0.3-1.2); Blood Urea Nitrogen 38 mg/dL (9-23); Calcium 8.5 mg/dL (8.3-10.6); Calcium (Corrected) 8.9 mg/dL (8.5-10.1); Carbon Dioxide 24.7 mMol/L (20.0-31.0); Chloride 108 mMol/L (98-107); Estimated Creatinine Clearance 48.2 mL/min (>60); Glucose 133 mg/dL (74-106); Osmolality,Calculated 288 (275-295); Potassium 4.4 mMol/L (3.4-5.1); Sodium 139 mMol/L (136-145); Total Protein 6.5 gm/dL (5.7-8.2); eGFR 41 See Note
--- NOTE | 2024-05-24 09:49 | ESDS_ITS ---
<Statement entered by Marlon Gutierrez MD - 05/24/24 17:04> I have discussed and was present for the essential components of the history, physical examination, diagnosis, and treatment plan with the resident. I agree with the patient's care as documented by the resident and amended herein by me. Marlon Gutierrez MD. <Statement entered by Alberto Payne MD - 05/24/24 10:04> I saw and examined the patient, and I agree with current management stated by Dr Romario MD,PGY1. Plan of care was discussed with the attending physician and resident physician. Disclaimer: Despite multiple revisions, due to the dictation software being used, the document bellow may not be free of grammatical errors including phonetic/typographic errors. However, this does not deter from our commitment to providing health care in the patient's best interest in mind. Dr. Elmer MD, PGY 2 Planned Discharge Date 05/24/24 DS: Providers Provider Date of admission: 05/23/24 02:20 Primary care physician: Olesya Renee MD Admitting Provider: Benjie Estrada MD Attending Provider on Admission: Marlon Gutierrez MD Attending Provider on DC: Romario Metz MD Discharging Provider: Romario Metz MD DS: Diagnosis Problem List Completed Was Problem List Reviewed/Reconciled?: Yes Hospital Course Hospital Course Hospital course: Patient is a 43-year-old male with a past medical history significant for esse ntial hypertension, azw-qkjoeht-niqsgmvtr diabetes mellitus type 2 [5.6], iron deficiency anemia CKD stage IIIa, possible POTS being worked up as outpatient. Patient follows up in [facility] with Dr. Renee. Patient presented with worsening right thigh edema over the past 3 days. Patient was admitted for treatment and management of acute blood loss anemia and sepsis secondary to right thigh cellulitis. Patient was transfused with 1 unit PRBC for his acute blood loss anemia after which Hb improved to 7.1 from 6.2 on admission. Was also treated with ferrous sulfate 325 mg p.o. every other day. For his sepsis secondary to right thigh cellulitis patient was received 2 days of Unasyn 3 g IV Q6 hourly. After which his WBC decreased to 11.7, tachycardia resolved and his kidney function also improved back to baseline. All patient's labs has now returned to his baseline. Patient is now clinically stable and fit for discharge to home. Discharge diagnoses: 1. Acute blood loss anemia 2. Anemia of chronic disease 3. Sepsis secondary to right thigh cellulitis?resolved 4. Leukocytosis?resolving 5. RAULITO on CKD stage III?resolved 6. Diabetic nephropathy 7. Proteinuria 8. Lps-mxtrvhx-owrhnjxmg diabetes mellitus type 2 [5.6] 9. Rule out POTS 10. EBV positive Discharge plan: ? You have been started on an antibiotic, Augmentin. Take 1 tablet twice daily for 5 more days to complete the course. ? Continue the rest of your home medications as listed below. ? Please follow-up with your primary care doctor within 2 weeks. ? In the event of any worsening or new symptoms, call your primary care doctor or 911 or present to the emergency room. We are grateful to be able to participate in Mr. Garay's care. We wish him the best. Plan of care discussed with Attending Dr. Gutierrez and PGY2 Dr. Elmer Metz MD PGY 1 Time Spent with Patient Time attestation: Total time spent providing and/or coordinating discharge services: Time spent: Greater than 30 minutes (35) Exam Vital Signs Temp Pulse Resp BP Pulse Ox O2 Del Method O2 Flow Rate 98.2 F 98 18 160/91 H 90 L Room Air 2 05/24/24 08:00 05/24/24 08:00 05/24/24 08:00 05/24/24 08:00 05/24/24 08:00 05/24/24 08:00 05/24/24 06:46 Narrative Exam Constitutional Alert, oriented x 3 and comfortable. Young male. Male and moist MM HEENT Vision grossly intact. Patent nares. Trachea midline Respiratory Chest normal on inspection and clear auscultation bilaterally Cardiovascular S1 and S2 audible, RRR. No murmurs carotid bruit. No gross JVD. Abdominal Soft and non tender to palpation in all quadrants. BS + Genitourinary No bladder tenderness, no flank pain. Normal to palpation Musculoskeletal Extremities tone within normal limits. No LE edema. Neurological CN II - XII grossly intact. Extremity motor and sensation grossly intact. Skin Warm, dry and intact. 5x5 cm induration on upper lateral aspect of right thigh, mildly tender to palpation, no drainage. Punctum present Psychiatric Patient has good affect, is cooperative Discharge Plan Plan Patient Disposition: HOME (Self Care) Patient condition on transfer: Stable Care Plan Goals: Take Augmentin 1 tablet twice daily for 5 more days to complete antibiotic course Take all home medication as prescribed Follow-up with PCP as outpatient within 2 weeks In case of emergency, call 911 or come back to the ED Prescriptions/Referrals Prescriptions/Med Rec: New amoxicillin-pot clavulanate 875-125 mg tablet 1 tab PO BID 5 Days Qty: 10 0RF Continued (DME) FreeStyle Ryan 3 Sensor Device See Rx Instructions .Route Qty: 2 5RF Rx Instructions: Use as directed Mounjaro 2.5 mg/0.5 mL pen injector 2.5 mg SUBCUT QWEEK MDD 0.5 mg Qty: 2 5RF carvedilol 3.125 mg tablet 3.125 mg PO BID 30 Days Qty: 60 0RF Rx Instructions: must administer with a meal/food ferrous sulfate 325 mg (65 mg iron) Tablet,Delayed Release (Dr/Ec) 325 mg PO QOD Qty: 90 1RF cholecalciferol (vitamin D3) 25 mcg (1,000 unit) Tablet 2,000 unit PO QDAY 90 Days Qty: 90 1RF Discontinued cephalexin 500 mg capsule 500 mg PO QID 7 Days Qty: 28 0RF doxycycline hyclate 100 mg tablet 100 mg PO BID Qty: 14 0RF Referrals: Olesya Renee MD [Primary Care Provider] - Patient/Caregiver Discharge Instructions Print Language: Yoruba Stand Alone Forms: Rosemarie Award Info., Patient Portal Info Letter Discharge Order Discharge Orders: Discharge (Routine); Ordered 05/24/24 Ordered By: Aleshia Jones Quality Discharge Quality Measures VTE prophylaxis
[2024-05-24] MEDS: HEPARIN SOD INJ 5000 UNIT/ML VIAL SC (10:28)
[2024-05-24] MEDS: carVEDILOL 3.125 MG TABLET 6.25 MG PO (10:28)
[2024-05-24] MEDS: VANCOMYCIN/NS 1 GM IVPB 200 ML IV (10:36)
--- NOTE | 2024-05-24 11:00 | CHAP ---
Patient was visited by the Spiritual Care Volunteer who prayed for them. (Volunteer was in the hospital from [facility]. 10:00-11:00)
== END 2024-05-24 16:18 | disposition home or self-care (01) | DRG 872 ==
LOC: SERX 05-23 00:19 → SERHOLD 05-23 03:40 → S3SX 05-23 06:36
PROVIDERS: Physician Assistant; Admitting Provider Internal Medicine; Emergency Provider Emergency Medicine; PCP Student in an Organized Health Care Education/Training Program; Visit Provider Internal Medicine
DX: A41.9 Sepsis, unspecified organism (principal); L02.415 Cutaneous abscess of right lower limb; N17.9 Acute kidney failure, unspecified; D62 Acute posthemorrhagic anemia; L03.115 Cellulitis of right lower limb; N18.31 Chronic kidney disease, stage 3a; I12.9 Hypertensive chronic kidney disease with stage 1 through stage 4 chronic kidney disease, or unspecified chronic kidney disease; E11.22 Type 2 diabetes mellitus with diabetic chronic kidney disease; D63.1 Anemia in chronic kidney disease; B27.00 Gammaherpesviral mononucleosis without complication; Z79.899 Other long term (current) drug therapy; Z79.85 Long-term (current) use of injectable non-insulin antidiabetic drugs
CPT/HCPCS: 36415; 73700; 80053; 81001; 83036; 83605; 83615; 83690; 83735; 83880; 84100; 84145; 84443; 84484; 85014; 85018; 85025; 85610; 85730; 86850; 86900; 86901; 86923; 87040; 87081; 87086; 93005; 93225; 93971; 96365; 96366; 99291; J0295; J0360; J1643; J1815; J2543; J3370; J3475; J7030; P9016; A9270; J1644

== ENCOUNTER 2024-12-09 09:17 | Outpatient (AMB) | payer OTHER, SELFPAY ==
--- NOTE | 2024-12-09 09:28 | ACNOTE_ITS ---
Vital Signs 12/09/24 09:29 Height 1.78 m Height Method Stated Weight 86.183 kg Weight Measurement Method Standing Scale BMI 27.2 BP 159/90 H Blood Pressure Source Automatic Cuff Blood Pressure Location Right Upper Arm Position Sitting Respiration 17 Pulse 100 Pulse Source Monitor Temp 97.7 F Temp Source Temporal Artery Scan Pulse Oximetry (%) 96 Oxygen Delivery Method Room Air Allergies/Meds Allergies & Medications Allergies No Known Allergies Allergy (Verified 12/09/24 09:31) Medication Reconciliation lisinopril 2.5 mg tablet 2.5 mg PO QDAY 1 month #30 tabs 12/09/24 [Rx] MA Intake Visit Data Collection New Patient or Established: Established Patient (seen at [facility] within 3 years) Seen by Clinical Staff ONLY (RN/MA): No Reason for Visit:: F\U,PHYSICAL Pain Present Currently: No Pain scale:: 0 Pain Scale Used: Miranda-Newman/Numerical Educational Guidance Counselor Required: No PCP or OBGYN visit in last 3 months: No Date of Last PCP or OBGYN visit: 05/24/24 Hx Now: No Do You Feel Safe at Home: Yes Authorities Contacted: N/A Smoking Status Smoking Status: Never smoker Immunization / Flu Flu Vaccine in the Last 12 Months: No Flu Vaccine Exclusion Criteria: No Exclusion Criteria Past Medical History Past Medical History NEUROLOGIC: Positive Neurological Disorders and Peripheral Neuropathy; Negative Seizures CARDIAC: Positive Cardiac Disorders, Hypercholesterolemia and Hypertension; Negative Congestive Heart Failure RESPIRATORY: Negative Chronic Obstructive Pulmonary Disease (COPD) or Asthma GASTROINTESTINAL: Positive Gastrointestinal Disorders and Colitis GENITOURINARY: Negative Genitourinary Disorders or Renal Disease ENDOCRINE: Positive Endocrine Disorders and Diabetes Mellitus Type 2; Negative Diabetes Mellitus Type 1 HEMATOLOGIC: Negative Blood Disorders or Sickle Cell Disease PSYCHO/SOCIAL: Positive Depression and Anxiety OTHER HISTORY: Positive Chicken Pox; Negative Blood Transfusions, Anesthesia Reactions or Cancer Surgical History SURGICAL: Positive Oral Surgery (teeth pulled, dental implants placed 2019) Social History SMOKING STATUS: Smoking status: Never smoker ALCOHOL: Alcohol Intake: Current ALCOHOL FREQUENCY: Alcohol Intake Frequency: holidays/special occasions only HOUSING: Housing: House LIVES WITH: Lives With: Family Patient Portal Questionaires PHQ-9 PHQ-2 Over the last 2 weeks, how often have you been bothered by any of the following problems? 1. Little interest or pleasure in doing things: not at all 2. Feeling down, depressed, or hopeless: not at all Total score: 0 PHQ-9 3. Trouble falling or staying asleep, or sleeping too much: Not at all 4. Feeling tired or having little energy: Not at all 5. Poor appetite or overeating: Not at all 6. Feeling bad about yourself - or that you are a failure or have let yourself or your family down: Not at all 7. Trouble concentrating on things, such as reading the newspaper or watching television: Not at all 8. Moving or speaking so slowly that other people could have noticed? - Or the opposite - being so fidgety or restless that you have been moving around a lot more than usual: not at all 9. Thoughts that you would be better off or of hurting yourself in some way: Not at all Total score: 0 If you checked off any problems, how difficult have these problems made it for you to do your work, take care of things at home, or get along with other people?: not difficult at all Source: Developed by Drs. Shekhar Mills, Chio Obrien, Terrance Phelan and colleagues, with an educational michelle from [employer]. Depression screen completed yes Social History Living Situation History Housing: House Housing Other:: Pt lives with his cousins Tobacco History Smoking Status: Never smoker Alcohol History Alcohol Intake: Current Alcohol Intake Frequency: holidays/special occasions only Domestic Abuse History Do You Feel Safe at Home: Yes Review of Systems Report any current symptoms Only answer those that you have currently: Past Medical History Past Medical History Have you ever been diagnosed with any of the following: Neurological Problems Seizures: No Peripheral Neuropathy: Yes Cardiology Problems Hypercholesterolemia: Yes Congestive Heart Failure: No Hypertension: Yes Respiratory Problems Chronic Obstructive Pulmonary Disease (COPD): No Asthma: No Stomache/Intestinal Problems Colitis: Yes Genital/Urinary Problems Renal Disease: No Endocrine Problems Diabetes Mellitus Type 1: No Diabetes Mellitus Type 2: Yes Blood Problems Sickle Cell Disease: No Psychologic Problems Depression: Yes Anxiety: Yes Other Problems Blood Transfusions: No Anesthesia Reactions: No Chicken Pox: Yes Cancer: No History of Present Illness HPI Narrative 43-year-old man with past medical history of diabetes mellitus type 2, hypertension, hyperlipidemia, depression, tachycardia and hypotension who came to the [facility] for routine visit. Patient reports overall feeling well, managing diabetes well with diet and exercise, as well as Mounjaro. Patient reports history of metformin intolerance, thus treated with Mounjaro has single agent. Patient using CGM, which shows time in range approximately 95% for past 90 days. Patient states she has not been taking any other medications, doing part to adverse effects including episodic hypertension. Last labs were approximately 6 months ago, showed elevated urine microalbumin/creatinine ratio. Patient denies fever, chills, chest pain, nausea, vomiting, shortness of breath. Patient encouraged to begin checking home blood pressure, bring a log to next visit. Started on low-dose of lisinopril for blood pressure control and kidney protection. Reviewed results of CGM with patient. Provided education on daily foot checks and diet. CBC, CMP, microalbuminuria creatinine protein ratio, TSH, hA1c and lipid panel were ordered on follow-up appointment in 1 month with lab results. Review of Systems Review of Systems Systems Reviewed: All systems reviewed, normal except as documented Objective/Exam Narrative Physical exam: PE: Gen: Well-developed and well-nourished. HEENT: NCAT, PERRLA, EOMI, MMM, anicteric conjunctivae. CVS: normal S1 and S2. RRR. No M/R/G. Resp: CTA B/L. No rhonchi, rales, crackles or wheezing. Abd: soft, non-tender, non-distended. BS+ in all 4 quadrants. MSK: Good ROM in BUE & BLE. No edema or rash. Neuro: CN II-XII grossly intact. Strength 5/5 in BUE & BLE. Alert and oriented x3. Psych: appropriate mood and affect. Assessment & Plan Diagnosis / Problem List (1) Hypertension: Status: Acute Qualifiers: Hypertension type: primary hypertension Qualified Code(s): I10 - Essential (primary) hypertension Assessment & Plan: Patient has history of hypertension, on presentation today had elevated blood pressure 159/90. Patient has discontinued all antihypertensive medications due to side effects including recurrent hypotension with fainting spells. Plan: - Encouraged patient to begin home blood pressure log, we will review next visit. - Lisinopril 2.5 mg p.o. daily - Labs including CMP/CBC, lipid profile, TSH - Follow-up visit in 1 month (2) Type 2 diabetes mellitus with hyperglycemia: Status: Acute Qualifiers: Diabetes mellitus middle or intermediate school principal insulin use: with middle or intermediate school principal use Qualified Code(s): E11.65 - Type 2 diabetes mellitus with hyperglycemia; Z79.4 - regional intermodal truck driver (current) use of insulin Assessment & Plan: Patient has history of diabetes well-controlled Mounjaro. Intolerant to metformin, hence single agent regiment. Uses continuous glucose monitor, time in range greater than 95%. Plan: - Educated patient on foot checks and diet - Continue with Mounjaro - Labs including CMP, CBC, urinalysis with microalbumin/creatinine ratio, HA1C, TSH - Follow-up visit in 1 month Additional Assessment Plan of care discussed with attending Dr. Ko. Gelacio Monique MD PGY-1 Office Procedures [facility] Level of Care Nursing/Assessment Patient Status: Established Patient Nursing Assessment/Reassessment: Medication Reconciliation, Update PMH in EMR and Vital Signs Coordination of Care: Complex Care and Chronic Disease 1-5, Consent,records obta ined, informed consent, Education Simp Pt/Fam and Staff clarify orders Established Patient Charge Established Patient Point Assignment: 85 Established Patient Point Charge: EP Level 3 (80-115) TB Screening LTBI Screening: Has patient traveled, was born, or resided for at least 1 month, or frequent border crossing into a country with an elevated TB rate: No Immunosuppression, current or planned (HIV, organ transplant, treated with biolo gic agents, steroids, or other immunosuppression medication): No Close contact to someone with infectious TB disease during lifetime: No Homelessness or incarceration, current or past: No TB testing indicated at this time (at least 1 yes above): No
[2024-12-09 09:29] VITALS: BP 159/90; PULSE 100; RESP 17; TEMP 36.5; O2SAT 96; BMI 27.2
== END 2024-12-09 10:10 | disposition home or self-care (01) ==
LOC: HODAHC 09:17
PROVIDERS: Supervising Provider Internal Medicine
DX: E11.65 Type 2 diabetes mellitus with hyperglycemia (principal); I10 Essential (primary) hypertension; Z79.4 Long term (current) use of insulin; Z79.85 Long-term (current) use of injectable non-insulin antidiabetic drugs; E78.5 Hyperlipidemia, unspecified
CPT/HCPCS: 99213; G0463

== ENCOUNTER 2025-01-17 17:19 | Emergency (ER) | payer OTHER, SELFPAY ==
[2025-01-17 17:21] VITALS: BMI 26.5
[2025-01-17 17:32] VITALS: BP 119/74; PULSE 104; RESP 17; TEMP 37; O2SAT 96
--- NOTE | 2025-01-17 18:03 | XR_ITS ---
Examination: CT brain head without contrast. 2-D sagittal coronal reconstructions Date and time of exam:January 17, 2025, 1818 hours INDICATIONS: Right eye blurred vision beginning 2 days ago CTDI: vol (mGy):52.1 DLP: (mGycm):1051 Technique: Multiple CT axial sections of the brain have been obtained, 5 mm slice thickness. Contrast has not been administered. 2-D sagittal, coronal reconstructions have been obtained Low dose protocols were performed. One or more of the following dose reduction techniques were used; automated exposure control, adjustment of the mA and/or KV according to patient size, use of iterative reconstruction technique. Findings: No significant ventricular enlargement. Intra-axial or extra-axial hemorrhage density is not seen. No mass effect or midline shift Basal cisterns are not remarkable. Fourth ventricle is midline. Cranial vault intact. Impression: Negative for acute hemorrhage, mass effect or midline shift As clinically warranted, consider brain MRI MRA without contrast follow-up
--- NOTE | 2025-01-17 18:04 | EDRME_ITS ---
Rapid Medical Screening Exam [facility] Arrival date/time: 01/17/25 17:19 CC: Blurred vision and spiderlike vision in her right eye. Abrupt onset 2 days ago with progressive increase in severity can identify colors, denies headache or eye pain. History of diabetes has a history of hypertension but is not taking medicines per recurrent episodes of hypotension. Patient is awake alert oriented in mild discomfort but not in any acute distress. Chief Complaint: Eye Problems Vital signs: Vital Signs Temperature 98.6 F 01/17/25 17:32 Pulse Rate 104 H 01/17/25 17:32 Respiratory Rate 17 01/17/25 17:32 Blood Pressure 119/74 01/17/25 17:32 Pulse Oximetry (%) 96 01/17/25 17:32 Oxygen Delivery Method Room Air 01/17/25 17:32
[2025-01-17 18:43] LABS: Basophils # (Auto) 0.1 Thou/mm3 (0.0-0.2); Basophils % (Auto) 1 % (0-2.5); Eosinophils # (Auto) 0.2 Thou/mm3 (0.0-0.5); Eosinophils % (Auto) 2 % (0-10); Hematocrit 27.2 % (41.0-53.0); Immature Granulocytes Auto 0.03 Thou/mm3 (0.00-0.00); Lymphocytes # (Auto) 1.8 Thou/mm3 (1.0-4.8); Lymphocytes % (Auto) 20 % (10-50); Mean Corpuscular HGB Conc 32.4 g/dl (31.0-37.0); Mean Corpuscular Hemoglobin 27.9 pg (25.0-35.0); Mean Corpuscular Volume 86 fL (80-100); Monocytes # (Auto) 0.6 Thou/mm3 (0.0-0.8); Monocytes % (Auto) 7 % (0-12); Neutrophils # (Auto) 6.3 Thou/mm3 (1.8-7.7); Neutrophils % (Auto) 71 % (37-80); Nucleated Red Blood Cell # 0.00 Thou/mm3 (0.00-0.00); Nucleated Red Blood Cell % 0 /100 WBC (0); Platelet Count 252 Thou/mm3 (140-440); RDW Standard Deviation 42.8 fL (35.1-43.9); Red Blood Count 3.15 Miln/mm3 (4.50-5.90); White Blood Count 9.0 Thou/mm3 (3.8-10.6)
[2025-01-17 18:49] LABS: Hemoglobin 8.8 g/dL (13.5-16.0)
[2025-01-17 19:12] LABS: Alanine Aminotransferase 24 U/L (10-49); Albumin, Serum 4.3 gm/dL (3.5-5.0); Albumin/Globulin Ratio 1.3 (1.2-2.2); Alkaline Phosphatase 73 U/L (46-116); Anion Gap 10 (7-16); Aspartate Amino Transferase 25 U/L (0-34); BUN/Creatinine Ratio 22 Ratio (12-20); Bilirubin,Total 0.4 mg/dL (0.3-1.2); Blood Urea Nitrogen 46 mg/dL (9-23); Calcium 9.9 mg/dL (8.3-10.6); Calcium (Corrected) 9.9 mg/dL (8.5-10.1); Carbon Dioxide 22.3 mMol/L (20.0-31.0); Chloride 112 mMol/L (98-107); Creatinine (Component) 2.1 mg/dL (0.6-1.3); Estimated Creatinine Clearance 45.4 mL/min (>60); Globulin 3.2 gm/dL (2.3-3.5); Glucose 98 mg/dL (74-106); Osmolality,Calculated 298 (275-295); Potassium 4.6 mMol/L (3.4-5.1); Sodium 144 mMol/L (136-145); Total Protein 7.5 gm/dL (5.7-8.2); eGFR 39 See Note
--- NOTE | 2025-01-17 19:26 | EDNOTE_ITS ---
ED Eye Problem RME/HPI General Chief complaint: Eye Problems Stated complaint: FLOATTERS TO R EYE Arrival date/time: 01/17/25 17:19 Limitations: no limitations RME / HPI RME / HPI Narrative: 01/17/25 17:19 CC: Blurred vision and spiderlike vision in her right eye. Abrupt onset 2 days ago with progressive increase in severity can identify colors, denies headache or eye pain. History of diabetes has a history of hypertension but is not taking medicines per recurrent episodes of hypotension. Patient is awake alert oriented in mild discomfort but not in any acute distress. --------- Dr. Sue's Main ED Evaluation: 44yo male non-insulin dependent DM, HTN, CKD presents to the ED for a chief complaint of vision problems to his right eye since yesterday at 10am. Patient states he was at work yesterday when he started having blurry vision to his right eye, describing it as a film or spiderweb covering my eye . Patient states his right eye is usually better than his left, reporting he is scheduled for cataract surgery to his left eye. Patient denies any falls or injuries. Denies any other associated symptoms. NKA. Related Data Previous Rx's ?Medication ?Instructions ?Recorded lisinopril 2.5 mg tablet 2.5 mg PO QDAY 1 month #30 t abs 12/09/24 Allergies Allergy/AdvReac Type Severity Reaction Status Date / Time No Known Allergies Allergy Verified 01/17/25 17:21 Review of Systems Review of Systems Systems Reviewed: All systems reviewed, normal except as documented Past Medical History Past Medical History NEUROLOGIC: Positive Neurological Disorders and Peripheral Neuropathy; Negative Seizures CARDIAC: Positive Cardiac Disorders, Hypercholesterolemia and Hypertension; Negative Congestive Heart Failure RESPIRATORY: Negative Chronic Obstructive Pulmonary Disease (COPD) or Asthma GASTROINTESTINAL: Positive Gastrointestinal Disorders and Colitis GENITOURINARY: Negative Genitourinary Disorders or Renal Disease MUSCULOSKELETAL: Negative Musculoskeletal Disorders ENDOCRINE: Positive Endocrine Disorders and Diabetes Mellitus Type 2; Negative Diabetes Mellitus Type 1 HEMATOLOGIC: Negative Blood Disorders or Sickle Cell Disease PSYCHO/SOCIAL: Positive Depression and Anxiety OTHER HISTORY: Positive Chicken Pox; Negative Blood Transfusions, Anesthesia Reactions or Cancer Surgical History SURGICAL: Positive Oral Surgery (teeth pulled, dental implants placed 2019) Social History SMOKING STATUS: Never smoker ED Exam Narrative Physical exam: Eye exam: no foreign body, lids normal bilaterally, corneas are not cloudy, no consensual photophobia; pt can only see fingers 2 feet in front of him out of his left eye which is chronic; cannot see hand motion out of the left eye; can see hand in front of right eye but cannot discriminate my fingers; unable to perform eye chart General Limitations: Present no limitations General appearance: Present alert and in no apparent distress Head Head exam: Present atraumatic Eye Eye exam: Present PERRL, EOMI and other (see exam narrative) ENT ENT exam: Present normal exam, normal oropharynx and mucous membranes moist Neck Neck exam: Present normal inspection, full ROM and trachea midline Chest Chest inspection: Present normal inspection and symmetric chest wall rise Respiratory Respiratory exam: Present normal lung sounds bilaterally Cardiovascular Cardiovascular exam: Present regular rate, normal rhythm and normal heart sounds Abdominal Exam Abdominal exam: Present soft Extremities Exam Extremities exam: Present normal inspection and full ROM Back Exam Back exam: Present normal inspection and full ROM Neurological Exam Neurological exam: Present alert, oriented X3 and CN II-XII intact Psychiatric Psychiatric exam: Present normal affect and normal mood Skin Skin exam: Present warm, dry, intact and normal color Course Quality Measures none Orders Category Date Time Status CT head/brain wo con Stat Exams 01/17/25 18:03 Completed CBC Stat Lab 01/17/25 18:31 Completed CMP [Comprehensive Metabolic Panel] Stat Lab 01/17/25 18:31 Completed Fluorescein Sodium [Bio-Palma] Med 01/17/25 21:35 Discontinued 1 mg RIGHT EYE X1 ONE Vital Signs Vital signs: Vital Signs Temperature 98.6 F 01/17/25 17:32 Pulse Rate 104 H 01/17/25 17:32 Respiratory Rate 17 01/17/25 17:32 Blood Pressure 119/74 01/17/25 17:32 Pulse Oximetry (%) 96 01/17/25 17:32 Oxygen Delivery Method Room Air 01/17/25 17:32 Eye MDM Narrative MDM Narrative:: Scribe Attestation: 01/17/25 Alondra Joshua am scribing for and in the presence of Dr. Biswas. Ocular US, transverse view performed by me, which shows a retinal detachment without any hemorrhage, foreign body, or lens dislocation. Patient data External records reviewed:: [facility] previous records (Per chart review, patient was admitted here on 05/22/24 for acute on chronic kidney failure.) Clinical information provided by:: patient Social determinants that could affect healthcare access:: none Patient has the following chronic illnesses:: DM, HTN, CKD How is presenting disease/condition affected by chronic disease/condition?: exacerbated by Evaluation data The following diagnostics were reviewed and interpreted by me:: lab results and radiology exam(s) Lab and/or radiology exams considered but not ordered:: none Interpretation Summary: WBC normal, Hgb 8.8, Hct 27.2, Creatinine 2.1, BUN 46, Glucose 98. --------- [facility] Report Signed Patient: MARY CALDERON Record#: [id number] Birthdate: 1980 Age/Sex: 44 / M Location: [facility] Attending Dr: Ordering Physician: Ran White NP Date of Service: 01/17/25 Procedure(s): CT head/brain wo con Accession Number(s): [id number] cc: Ran White OPERATOR [employer]; Wilman Simmons MD; NO PRIMARY/FAMILY,PHYSICIAN~ Examination: CT brain head without contrast. 2-D sagittal coronal reconstructions Date and time of exam:January 17, 2025, 1818 hours INDICATIONS: Right eye blurred vision beginning 2 days ago CTDI: vol (mGy):52.1 DLP: (mGycm):1051 Technique: Multiple CT axial sections of the brain have been obtained, 5 mm slice thickness. Contrast has not been administered. 2-D sagittal, coronal reconstructions have been obtained Low dose protocols were performed. One or more of the following dose reduction techniques were used; automated exposure control, adjustment of the mA and/or KV according to patient size, use of iterative reconstruction technique. Findings: No significant ventricular enlargement. Intra-axial or extra-axial hemorrhage density is not seen. No mass effect or midline shift Basal cisterns are not remarkable. Fourth ventricle is midline. Cranial vault intact. Impression: Negative for acute hemorrhage, mass effect or midline shift As clinically warranted, consider brain MRI MRA without contrast follow-up Dictated By: Wilman Simmons MD Signed By: <Electronically signed by Wilman Simmons MD in OV> 01/17/25 1844 Medications / Prescriptions Medications or Prescriptions considered but not ordered:: none Medication administrations:: Medication Administration History Discontinued Medications Fluorescein Sodium (Fluorescein Sod 1 Mg Strp) 1 mg RIGHT EYE X1 ONE Stop: 01/17/25 21:36 Last Admin: 01/17/25 22:00 Dose: 1 mg Documented By: OSCAR see above Consultations Consultation(s) initiated? (list below): Yes Consultation #1 (Physician, Specialty, Details): Discussed case with [facility]'s transfer center. Discussed patients ED course, exam findings, labs, and radiology results. Awaiting callback. Time: 23:06 Consultation #2 (Physician, Specialty, Details): Discussed case with [facility]'s transfer center. Discussed patients ED course, exam findings, labs, and radiology results. Dr. Patton says the patient can follow-up with him, but will likely need to be referred to someone else because he is not a retinal specialist. Time: 23:28 Consultation #3 (Physician, Specialty, Details): Spoke with Dr. Patton, metal moulder's assistant, from the [facility]. Discussed patients ED course, exam findings, labs, and radiology results. Discussed patie nts ED course, exam findings, labs, and radiology results. States the patient can follow-up as an outpatient and needs to be seen on Monday, at the latest Monday. Endorses the patient needs to call the following number [phone] and say I need surgery in the next few days . Time: 01:04 Diagnosis Eye Problem Differential Diagnosis: other (retinal detachment, mac off detachment, worsening DM causing eye blindness) Most likely diagnosis given after review of the tests above:: see clinical impression below Admission Indicated Admission indicated?: not indicated Admission Request Was there a request for admission?: No Disposition Plan Disposition Plan: Discharge Discharge Attestation Discharge Attestation: The patient and all family members were given an opportunity to ask questions and understood the discharge instructions. Discharge instructions specifically effects, indications for sooner follow up or return to the emergency department, and the expected course of current diagnosis. Patient condition: Stable Discharge Plan Plan Patient Disposition: HOME (Self Care) Patient condition on transfer: Stable Prescriptions/Referrals Prescriptions/Med Rec: No Action lisinopril 2.5 mg tablet 2.5 mg PO QDAY 30 Days Qty: 30 2RF Referrals: No Primary/Family,Physician [Primary Care Provider] - In 1 week Problem List Clinical Impression: Retinal detachment Patient/Caregiver Discharge Instructions Education Materials: ED Retinal Detachment Additional Instructions: Call the [facility] on Monday at the following number: [phone]. Tell them you need to be seen ON MONDAY by Dr. Patton or another metal moulder's assistant, or at the latest on Monday, because you will need surgery within the next few days. Return to the emergency department sooner if you are having worsening change in your vision, or any other concerns Print Language: Kyrgyz Stand Alone Forms: Rosemarie Award Info., Patient Portal Info Letter
[2025-01-17] MEDS: FLUORESCEIN SOD 1 MG STRP RIGHT EYE (22:00)
--- NOTE | 2025-01-17 22:43 | PC.NURSE ---
IZZY FROM THE [facility] CALLED AND THEY DO NOT HAVE OPHTALMOLOGY.
[2025-01-17 23:10] VITALS: BP 153/87; PULSE 90; RESP 16; TEMP 36.6; O2SAT 95
== END 2025-01-18 01:25 | disposition home or self-care (01) ==
PROVIDERS: Registered Nurse General Practice; Emergency Provider Emergency Medicine
DX: H33.21 Serous retinal detachment, right eye (principal)
CPT/HCPCS: 36415; 70450; 80053; 85025; 99283

== ENCOUNTER 2025-04-30 14:05 | Outpatient (AMB) | payer BC, SELFPAY ==
[2025-04-30 14:18] VITALS: BP 161/89; PULSE 95; RESP 19; TEMP 36.1; O2SAT 96; BMI 28.4
--- NOTE | 2025-04-30 14:18 | PD.RESCLINIC ---
Vital Signs 04/30/25 14:18 Height 1.78 m Height Method Stated Weight 90.038 kg Weight Measurement Method Standing Scale BMI 28.4 BP 161/89 H Blood Pressure Source Automatic Cuff Blood Pressure Location Right Upper Arm Position Sitting Respiration 19 Pulse 95 Pulse Source Monitor Temp 97.0 F Temp Source Temporal Artery Scan Pulse Oximetry (%) 96 Oxygen Delivery Method Room Air Allergies/Meds Allergies & Medications Allergies No Known Allergies Allergy (Verified 04/30/25 14:19) Medication Reconciliation blood-glucose sensor (ImageVisionStyle Ryan 3 Plus Sensor device) #1 ea 04/30/25 [Rx] empagliflozin 10 mg tablet (Jardiance) 10 mg PO QAM 1 month #30 tabs 04/30/25 [Rx] losartan 25 mg tablet 25 mg PO QDAY 1 month #30 tabs 04/30/25 [Rx] MA Intake Visit Data Collection New Patient or Established: Established Patient (seen at [facility] within 3 years) Seen by Clinical Staff ONLY (RN/MA): No Pain Present Currently: No Pain scale:: 0 Pain Scale Used: Miranda-Newman/Numerical Membership Coordinator Required: No PCP or OBGYN visit in last 3 months: Yes Do You Feel Safe at Home: Yes Authorities Contacted: N/A Smoking Status Smoking Status: Never smoker Immunization / Flu Flu Vaccine in the Last 12 Months: No Flu Vaccine Exclusion Criteria: No Exclusion Criteria Past Medical History Past Medical History NEUROLOGIC: Positive Neurological Disorders and Peripheral Neuropathy; Negative Seizures CARDIAC: Positive Cardiac Disorders, Hypercholesterolemia and Hypertension; Negative Congestive Heart Failure RESPIRATORY: Negative Chronic Obstructive Pulmonary Disease (COPD) or Asthma GASTROINTESTINAL: Positive Gastrointestinal Disorders and Colitis GENITOURINARY: Negative Genitourinary Disorders or Renal Disease ENDOCRINE: Positive Endocrine Disorders and Diabetes Mellitus Type 2; Negative Diabetes Mellitus Type 1 HEMATOLOGIC: Negative Blood Disorders or Sickle Cell Disease PSYCHO/SOCIAL: Positive Depression and Anxiety OTHER HISTORY: Positive Chicken Pox; Negative Blood Transfusions, Anesthesia Reactions or Cancer Surgical History SURGICAL: Positive Oral Surgery (teeth pulled, dental implants placed 2020) Social History SMOKING STATUS: Smoking status: Never smoker ALCOHOL: Alcohol Intake: Current ALCOHOL FREQUENCY: Alcohol Intake Frequency: holidays/special occasions only HOUSING: Housing: House LIVES WITH: Lives With: Family Patient Portal Questionaires PHQ-9 PHQ-2 Over the last 2 weeks, how often have you been bothered by any of the following problems? 1. Little interest or pleasure in doing things: not at all 2. Feeling down, depressed, or hopeless: not at all Total score: 0 PHQ-9 8. Moving or speaking so slowly that other people could have noticed? - Or the opposite - being so fidgety or restless that you have been moving around a lot more than usual: not at all Source: Developed by Drs. Shekhar Mills, Chio Obrien, Terrance Phelan and colleagues, with an educational michelle from [employer]. Social History Living Situation History Housing: House Housing Other:: Pt lives with his cousins Tobacco History Smoking Status: Never smoker Alcohol History Alcohol Intake: Current Alcohol Intake Frequency: holidays/special occasions only Domestic Abuse History Do You Feel Safe at Home: Yes Review of Systems Report any current symptoms Only answer those that you have currently: Past Medical History Past Medical History Have you ever been diagnosed with any of the following: Neurological Problems Seizures: No Peripheral Neuropathy: Yes Cardiology Problems Hypercholesterolemia: Yes Congestive Heart Failure: No Hypertension: Yes Respiratory Problems Chronic Obstructive Pulmonary Disease (COPD): No Asthma: No Stomache/Intestinal Problems Colitis: Yes Genital/Urinary Problems Renal Disease: No Endocrine Problems Diabetes Mellitus Type 1: No Diabetes Mellitus Type 2: Yes Blood Problems Sickle Cell Disease: No Psychologic Problems Depression: Yes Anxiety: Yes Other Problems Blood Transfusions: No Anesthesia Reactions: No Chicken Pox: Yes Cancer: No History of Present Illness HPI Narrative 43-year-old man with past medical history of diabetes mellitus type 2, hypertension, hyperlipidemia, depression, tachycardia and hypotension who came to the [facility] for routine visit. Patient reports overall feeling well, managing diabetes well with diet and exercise, as well as Mounjaro. Patient reports history of metformin intolerance, thus treated with Mounjaro has single agent. Patient using CGM, which shows time in range approximately 95% for past 90 days. Patient states she has not been taking any other medications, doing part to adverse effects including episodic hypertension. Last labs were approximately 6 months ago, showed elevated urine microalbumin/creatinine ratio. Patient denies fever, chills, chest pain, nausea, vomiting, shortness of breath. 04/30/2025: Patient seen in office for routine visit. Since last visit, patient was seen in ED for blurry vision, found to have retinal detachment, currently managed by Dr. Cam Weems. Patient has ran out of medications. Noted cough associated with lisinopril. Started patient on lisinopril. 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 Renewed prescription for FreeStyle Ryan 3. Patient encouraged to begin checking home blood pressure, bring a log to next visit. Started on low-dose of losartan for blood pressure control and kidney protection. CBC, CMP, microalbuminuria creatinine protein ratio, TSH, hA1c and lipid panel were ordered on follow-up appointment in 1 month with lab results. Review of Systems Review of Systems Systems Reviewed: All systems reviewed, normal except as documented Objective/Exam Narrative Physical exam: PE: Gen: Well-developed and well-nourished. HEENT: NCAT, PERRLA, EOMI, MMM, anicteric conjunctivae. CVS: normal S1 and S2. RRR. No M/R/G. Resp: CTA B/L. No rhonchi, rales, crackles or wheezing. Abd: soft, non-tender, non-distended. BS+ in all 4 quadrants. MSK: Good ROM in BUE & BLE. No edema or rash. Neuro: CN II-XII grossly intact. Strength 5/5 in BUE & BLE. Alert and oriented x3. Psych: appropriate mood and affect. Assessment & Plan Diagnosis / Problem List (1) Type 2 diabetes mellitus with chronic kidney disease: Status: Acute Qualifiers: Chronic kidney disease stage: stage 3 (moderate) Chronic kidney disease stage 3 subtype: stage 3b (GFR 30-44) Diabetes mellitus continuous churn buttermaker insulin use: without continuous churn buttermaker use Qualified Code(s): E11.22 - Type 2 diabetes mellitus with diabetic chronic kidney disease; N18.32 - Chronic kidney disease, stage 3b Assessment & Plan: Patient has history of diabetes well-controlled Mounjaro. Intolerant to metformin, hence single agent regiment. Uses continuous glucose monitor, time in range greater than 95%. Patient stopped taking Mounjaro due to blurry vision. Recently seen in ED due to worsening vision, determined to have retinal detachment. Currently managed by Dr. Cam Weems. Monjauro associated with Non-Arteritic Ischemic Optic Neuropathy, will change. Plan: - Jardiance 10 mg once daily - Labs including CMP, CBC, urinalysis with microalbumin/creatinine ratio, HA1C, TSH - Follow-up visit in 1 month (2) Hypertension: Status: Acute Qualifiers: Hypertension type: primary hypertension Qualified Code(s): I10 - Essential (primary) hypertension Assessment & Plan: Patient has history of hypertension. Patient has discontinued all antihypertensive medications due to side effects including cough with lisinopril. Plan: - Encouraged patient to begin home blood pressure log, we will review next visit. - Losartan 25mg once daily - Labs including CMP/CBC, lipid profile, TSH - Follow-up visit in 1 month Additional Assessment Plan of care discussed with attending Dr. Sharma. Gelacio Monique MD PGY-[address] [facility] Level of Care Nursing/Assessment Patient Status: Established Patient Nursing Assessment/Reassessment: Medication Reconciliation, Update PMH in EMR and Vital Signs Coordination of Care: Complex Care and Chronic Disease 1-5, Complex Care/Chronic Disease 5 or more, Consent,records obtained, informed consent, Lab and Imaging orders, Results/Orders obtained and Staff clarify orders Established Patient Charge Established Patient Point Assignment: 125 Established Patient Point Charge: EP Level 4 (120-155)
== END 2025-04-30 14:46 | disposition home or self-care (01) ==
LOC: HODAHC 14:05
PROVIDERS: Supervising Provider Internal Medicine
DX: E11.22 Type 2 diabetes mellitus with diabetic chronic kidney disease (principal); I12.9 Hypertensive chronic kidney disease with stage 1 through stage 4 chronic kidney disease, or unspecified chronic kidney disease; N18.32 Chronic kidney disease, stage 3b; Z79.84 Long term (current) use of oral hypoglycemic drugs; E78.5 Hyperlipidemia, unspecified; F32.A Depression, unspecified; H47.019 Ischemic optic neuropathy, unspecified eye
CPT/HCPCS: 99214; G0463